=== PATIENT | female | born 1935 | race Caucasian/White ===

== ENCOUNTER 2024-11-21 14:26 | Emergency (ER) | payer MEDICARE, SELFPAY ==
[2024-11-21 14:30] VITALS: BP 145/90; PULSE 111; RESP 20; O2SAT 97; BMI 26.8
--- NOTE | 2024-11-21 14:39 | XR_ITS ---
WS: [id number] Exam: XR chest 1V portable [id number] Date/Time of Exam: 11/21/2024 2:47 PM Reason For Exam: shortness of breath No priors. Lungs are hyperinflated and clear. Heart size is normal. The mediastinum is normal in contour. Prominent hiatal hernia. No pleural effusion. Advanced DJD of both shoulders. XR/XR chest 1V portable [id number] IMPRESSION: 1. Pulmonary hyperinflation. No acute process. 2. Prominent hiatal hernia.
--- NOTE | 2024-11-21 14:41 | ECG_ITS ---
[facility] 2024-[facility]21 Pat Name: Yelitza Pisano Department: Room: Gender: Female Receiving Coordinator: : 1935 Requested By: Levar Delvalle Order Number: [id number] Kathrine MD: Yves Sweeney M.D. Measurements Intervals [place] Rate: 106 P: 72 SC: 175 QRS: -18 QRSD: 82 T: 78 QT: 326 QTc: 435 Interpretive Statements SINUS TACHYCARDIA ABNORMAL RHYTHM ECG No previous ECG available for comparison Electronically Signed On 11-21-2024 16:36:14 CDT by Yves Sweeney M.D. [email or web address]
--- NOTE | 2024-11-21 14:48 | W.ED.DENTAL ---
HPI - Dental/Oral General: Chief complaint: Shortness of Breath/Dyspnea Stated complaint: SOB - COPD Time Seen by Provider: 11/21/24 14:38 History of Present Illness: 81-year-old female presents emergency room complaining of shortness of breath she has a history of COPD. Patient has been on hospice for COPD the last several years. She has not been taking any of your budesonide evidently hospice would not pay for it so she was taken off of that she has noticed significant worsening of her symptoms since then. She comes in today because she has been more short of breath she uses oxygen but she says only at night she is about 4 L. She notices significant improvement after receiving DuoNeb and route to the hospital from EMS she was also given Solu-Medrol. Her oxygen saturations on room air when I came in the room were in the 92-93 range improving to 95-96 with 2 L by nasal cannula. She denies any fever sweats chills productive cough or hemoptysis. No known history of coronary artery disease no history of DVT or PE. She has not previously been diagnosed with any cancers. Associated symptoms: Denies fever(s) Related Data Home Medications ?Medication ?Instructions ?Recorded ?Confirmed allopurinol 100 mg tablet 100 mg PO DAILY 11/21/24 11/21/24 alprazolam 0.5 mg tablet 0.5 mg PO Q8H PRN ANXIETY 11/21/24 11/21/24 budesonide 1 mg/2 mL suspension 1 mg inhalation TID 11/21/24 11/21/24 for nebulization formoterol fumarate 20 mcg/2 mL 20 mcg inhalation BID 11/21/24 11/21/24 solution for nebulization furosemide 20 mg tablet 20 mg PO DAILY 11/21/24 11/21/24 levothyroxine 50 mcg tablet 50 mcg PO QAM 11/21/24 11/21/24 potassium chloride 20 mEq 20 meq PO DAILY 11/21/24 11/21/24 tablet,extended release revefenacin 175 mcg/3 mL solution 175 mcg inhalation DAILY 11/21/24 11/21/24 for nebulization (Yupelucreciai) Previous Rx's ?Medication ?Instructions ?Recorded ipratropium 0.5 mg-albuterol 3 mg 3 ml inhalation Q4H PRN shortness 11/21/24 (2.5 mg base)/3 mL nebulization of breath or wheezing #90 mL soln prednisone 20 mg tablet 20 mg PO TID #15 tabs 11/21/24 Allergies Allergy/AdvReac Type Severity Reaction Status Date / Time acetaminophen (From [place]) Allergy Unknown Verified 11/21/24 14:53 atorvastatin (From Lipitor) Allergy Unknown Verified 11/21/24 14:53 cefaclor (From Ceclor) Allergy ALGY-Anaphy Verified 11/21/24 14:53 laxis cefprozil Allergy Unknown Verified 11/21/24 14:53 cefuroxime (From Ceftin) Allergy Unknown Verified 11/21/24 14:53 hydrochlorothiazide (From Allergy Unknown Verified 11/21/24 14:53 Maxzide) hydrocodone (From [place]) Allergy Unknown Verified 11/21/24 14:53 levofloxacin (From Levaquin) Allergy Unknown Verified 11/21/24 14:53 lisinopril (From Prinivil) Allergy Unknown Verified 11/21/24 14:53 montelukast (From Singulair) Allergy Unknown Verified 11/21/24 14:53 niacin (From Niaspan Allergy Unknown Verified 11/21/24 14:53 Extended-Release) nifedipine (From Procardia) Allergy Unknown Verified 11/21/24 14:53 Penicillins Allergy Unknown Verified 11/21/24 14:53 theophylline Allergy Unknown Verified 11/21/24 14:53 tramadol Allergy Unknown Verified 11/21/24 14:53 triamterene (From Maxzide) Allergy Unknown Verified 11/21/24 14:53 Review of Systems Const: Denies: fever(s) or chills Card: Denies: chest pain Resp: Reports: dyspnea, wheezing and chest congestion GI: Denies: abdominal pain : Denies: dysuria, urinary frequency or urinary urgency Musc: Denies: neck pain or back pain Skin/Breast: Denies: rash PFSH ED PFSH: Medical History (Updated 11/21/24 @ 15:48 by Levar Singleton DO) COPD (chronic obstructive pulmonary disease) Physical Exam Const: GENERAL APPEARANCE: cooperative ORIENTATION/CONSCIOUSNESS: Yes awake, Yes oriented to person, Yes oriented to place and Yes oriented to time HENMT: COMMON NORMALS: normocephalic, atraumatic and hearing grossly normal bilaterally HEAD & SCALP: normocephalic and atraumatic Resp: AUSCULTATION: wheezes Cardio: COMMON NORMALS: regular rate, regular rhythm and No murmurs present (Cardio) RATE: regular rate RHYTHM: regular rhythm GI: COMMON NORMALS: Soft to palpation and No hepatosplenomegaly present AUSCULTATION: Yes normoactive bowel sounds PALPATION: Yes Soft to palpation, No Tenderness to palpation present (GI), No Guarding due to palpation present (GI) and Yes No hepatosplenomegaly present Extremity: COMMON NORMALS: normal to inspection, capillary refill normal, no clubbing, cyanosis or edema, no calf tenderness and no pedal edema Neuro: SENSORIUM/ORIENTATION: Yes oriented to person, Yes oriented to place and Yes oriented to time Skin: COMMON NORMALS: no rashes or lesions noted GENERAL SKIN EXAM: no rashes or lesions noted Course Vital Signs: Vital signs: Vital Signs Pulse Rate 105 H 11/21/24 17:49 Respiratory Rate 20 H 11/21/24 15:05 Blood Pressure 123/71 11/21/24 17:49 Pulse Oximetry 95 11/21/24 17:49 Oxygen Delivery Me thod Nasal Cannula 11/21/24 15:47 Oxygen Flow Rate 2 11/21/24 15:47 MDM - Dental/Oral Medical Decision Making Patient has been on hospice evidently for COPD for a number of years does not use oxygen or they have he uses it at night hospice was not going to pay for some of her medications particular inhaled budesonide and she did not want to pay [id number] so she stopped using it her symptoms seem to worsen. Patient did improve after DuoNeb and Solu-Medrol here. She tells me she has been taken off of hospice because she been on her for 3 years continuously now she is on palliative care instead. Encourage patient to follow-up with her primary care doctor for evaluation of long-term management of her COPD. Recommend continuous use of oxygen at 2 L/min. Patient given a steroid taper and also given DuoNeb suspect patient may be better off being treated outside of palliative care or hospice and being treated more aggressively especially given her report of improvement while on budesonide. Family expressed concern about her ability to get around evidently this has been an issue for several months. Discussed evaluation for possible senior care care through primary care doctor patient does not express much interest in this possibility Lab Data 11/21/24 14:47 11/21/24 14:47 Radiology Impressions Chest X-Ray 11/21/24 14:39 IMPRESSION: 1. Pulmonary hyperinflation. No acute process. 2. Prominent hiatal hernia. Laboratory Results WBC 7.85 10^3/uL (3.29-11.43) 11/21/24 14:47 RBC 4.66 10^6/uL (3.85-5.65) 11/21/24 14:47 Hgb 14.50 g/dL (11.27-16.99) 11/21/24 14:47 Hct 45.1 % (36-47) 11/21/24 14:47 MCV 96.8 fl (85-98) 11/21/24 14:47 MCH 31.1 pg (27-33) 11/21/24 14:47 MCHC 32.2 g/dL (30-55) 11/21/24 14:47 RDW 13.6 % (12.1-15.1) 11/21/24 14:47 Plt Count 195 10^3/cmm (157-399) 11/21/24 14:47 MPV 10.0 fL (7.4-10.4) 11/21/24 14:47 Neut % (Auto) 51.1 % 11/21/24 14:47 Lymph % (Auto) 37.1 % 11/21/24 14:47 [place] % (Auto) 8.0 % 11/21/24 14:47 Eos % (Auto) 3.1 % 11/21/24 14:47 Baso % (Auto) 0.4 % 11/21/24 14:47 Neut # (Auto) 4.02 10^3/uL (1.8-7.7) 11/21/24 14:47 Lymph # (Auto) 2.9 10^3/uL (0.8-4.8) 11/21/24 14:47 [place] # (Auto) 0.6 10^3/uL (0.2-0.9) 11/21/24 14:47 Eos # (Auto) 0.2 10^3/uL (0.0-0.8) 11/21/24 14:47 Baso # (Auto) 0.0 10^3/uL (0.0-0.1) 11/21/24 14:47 Nucleated RBC % (auto) 0 % 11/21/24 14:47 Nucleated RBCs # 0.0 /100WBC 11/21/24 14:47 Specimen Type Arterial 11/21/24 15:16 Sample Site Brachial, right 11/21/24 15:16 ABG pH 7.40 (7.35-7.45) 11/21/24 15:16 ABG pCO2 43.4 mmHg (35-45) 11/21/24 15:16 ABG pO2 95.9 mmHg (80.0-100.0) 11/21/24 15:16 ABG PO2/FiO2 Ratio 342 11/21/24 15:16 ABG HCO3 27.0 mmol/L (22-26) H 11/21/24 15:16 ABG Base Excess 1.8 mmol/L (-2.0-2.0) 11/21/24 15:16 Alcides Test N/a 11/21/24 15:16 Hematocrit 45.5 % (37-47) 11/21/24 15:16 Hgb O2 Saturation 97.2 % (95-100) 11/21/24 15:16 Carboxyhemoglobin 0.9 %THgb (0.4-20.1) 11/21/24 15:16 Methemoglobin 0.2 % (0.4-1.5) L 11/21/24 15:16 Total Hemoglobin 14.8 g/dL (12-16) 11/21/24 15:16 O2 Delivery Device Nc 11/21/24 15:16 O2 Liters/Min 2.0 % 11/21/24 15:16 FiO2 28.0 % 11/21/24 15:16 Tool Room Supervisor ID glc 11/21/24 15:16 Sodium 139 mmol/L (136-145) 11/21/24 14:47 Potassium 4.3 mmol/L (3.5-5.1) 11/21/24 14:47 Chloride 102 mmol/L (98-107) 11/21/24 14:47 Carbon Dioxide 24 mmol/L (22-29) 11/21/24 14:47 Anion Gap 17.3 (5-19) 11/21/24 14:47 BUN 24 mg/dL (8-23) H 11/21/24 14:47 Creatinine 1.0 mg/dL (0.5-0.9) H 11/21/24 14:47 GFR Calculation Not Reportable 11/21/24 14:47 Glucose 127 mg/dL (65-115) H 11/21/24 14:47 Calculated Osmolality 294 mOsm/kg (285-295) 11/21/24 14:47 Calcium 10.1 mg/dL (8.5-10.5) 11/21/24 14:47 Total Bilirubin 0.6 mg/dL (0.15-1.2) 11/21/24 14:47 AST 22 U/L (0-32) 11/21/24 14:47 ALT 16 U/L (0-33) 11/21/24 14:47 Alkaline Phosphatase 67 U/L (35-105) 11/21/24 14:47 Total Protein 7.5 g/dL (6.6-8.7) 11/21/24 14:47 Albumin 4.1 g/dL (3.5-5.2) 11/21/24 14:47 Globulin 3.4 g/dL (1.3-4.6) 11/21/24 14:47 Influenza A (PCR) Negative (Negative) 11/21/24 15:45 Influenza Type B (PCR) Negative (Negative) 11/21/24 15:45 RSV (PCR) Negative (Negative) 11/21/24 15:45 SARS-CoV-2 (PCR) Negative (Negative) 11/21/24 15:45 All radiology interpretation(s) finalized by discharge Discharge Plan Discharge Patient Disposition: Home Clinical Impression: Acute exacerbation of chronic obstructive airways disease Condition: Stable Prescriptions: New prednisone 20 mg tablet 20 mg PO TID Qty: 15 0RF Rx Instructions: 1 p.o. 3 times daily x3 days, 1 p.o. twice daily x2 days, 1 p.o. daily x2 days ipratropium-albuterol 0.5 mg-3 mg(2.5 mg base)/3 mL solution for nebulization 3 ml inhalation Q4H PRN (Reason: shortness of breath or wheezing) Qty: 90 0RF No Action alprazolam 0.5 mg tablet 0.5 mg PO Q8H PRN (Reason: ANXIETY ) levothyroxine 50 mcg tablet 50 mcg PO QAM formoterol fumarate 20 mcg/2 mL solution for nebulization 20 mcg INHALATION BID [place] 175 mcg/3 mL solution for nebulization 175 mcg INHALATION DAILY allopurinol 100 mg Tablet 100 mg PO DAILY furosemide 20 mg Tablet 20 mg PO DAILY budesonide 1 mg/2 mL suspension for nebulization 1 mg inhalation TID potassium chloride 20 mEq Tablet Extended Release 20 meq PO DAILY Discharge Orders: Discharge ED (Routine); Ordered 11/21/24 Ordered By: Levar Singleton Referrals: Lydia Cleaning, DO [Primary Care Provider] - Discharge Diet: Usual diet Discharge Activity: Increase activity as tolerated Patient Instructions: Opioid Safety, Pain Management Activity Restrictions/Additional Instructions: Thank you for choosing [facility] for your healthcare needs today. It is very important that you follow up as instructed or that you return to the Emergency Department should you have concerns or if your condition changes or worsens in any way. You are seen in the emergency room with complaint difficulty breathing chest x-ray was normal there lungs sound improved after receiving breathing treatments. Recommend you follow-up with your primary care doctor about your long-term management of your COPD. Refilled ipratropium bromide and give a short course of oral steroids to begin this evening. Print Language: Sinhala Coding Level of Care Code ED Raw Scales Operator for Theodora Rivero
[2024-11-21 14:59] LABS: Basophils % 0.4 %; Eosinophils # 0.2 10^3/uL (0.0-0.8); Eosinophils % 3.1 %; Hematocrit 45.1 % (36-47); Lymphocytes # 2.9 10^3/uL (0.8-4.8); Lymphocytes % 37.1 %; Mean Corpuscular HGB Conc 32.2 g/dL (30-55); Mean Corpuscular Hemoglobin 31.1 pg (27-33); Mean Corpuscular Volume 96.8 fl (85-98); Monocytes # 0.6 10^3/uL (0.2-0.9); Neutrophils # 4.02 10^3/uL (1.8-7.7); Neutrophils % 51.1 %; Nucleated Red Blood Cells % 0 %; Platelet Count 195 10^3/cmm (157-399); Red Blood Count 4.66 10^6/uL (3.85-5.65); Red Cell Distribution Width 13.6 % (12.1-15.1); White Blood Count 7.85 10^3/uL (3.29-11.43)
[2024-11-21 15:05] VITALS: PULSE 101; RESP 20; O2SAT 97
[2024-11-21] MEDS: ipratropium-albuterol 3 mL Neb INHALATION (15:05)
[2024-11-21 15:11] LABS: Alanine Aminotransferase 16 U/L (0-33); Albumin Level 4.1 g/dL (3.5-5.2); Alkaline Phosphatase 67 U/L (35-105); Anion Gap 17.3 (5-19); Aspartate Amino Transferase 22 U/L (0-32); Blood Urea Nitrogen 24 mg/dL (8-23); Calcium 10.1 mg/dL (8.5-10.5); Carbon Dioxide 24 mmol/L (22-29); Chloride 102 mmol/L (98-107); Creatinine Clr Calc Pharmacy 33.4226; Globulin 3.4 g/dL (1.3-4.6); Glucose 127 mg/dL (65-115); Osmolality Calculated 294 mOsm/kg (285-295); Potassium 4.3 mmol/L (3.5-5.1); Sodium 139 mmol/L (136-145); Total Bilirubin 0.6 mg/dL (0.15-1.2); Total Protein 7.5 g/dL (6.6-8.7)
[2024-11-21 15:27] LABS: ABG PCO2 43.4 mmHg (35-45); Arterial Blood Gas Hematocrit 45.5 % (37-47); Base Excess ABG 1.8 mmol/L (-2.0-2.0); Blood Gas Operator Identificat glc; Blood Gas Sample Site Brachial, right; Blood Gas Sample Type Arterial; Carboxyhemoglobin 0.9 %THgb (0.4-20.1); HGB O2 Sat 97.2 % (95-100); Methemoglobin 0.2 % (0.4-1.5); Oxygen Device NC; PO2 ABG 95.9 mmHg (80.0-100.0); PO2 FiO2 Ratio Arterial Blood 342; Total Hemoglobin 14.8 g/dL (12-16)
[2024-11-21 15:47] VITALS: BP 109/57; PULSE 104; O2SAT 96
[2024-11-21 16:33] LABS: Influenza A NEGATIVE (Negative); Influenza B NEGATIVE (Negative); Respiratory Syncytial Virus Ce NEGATIVE (Negative); SARS-CoV-2 PCR NEGATIVE (Negative)
[2024-11-21 17:49] VITALS: BP 123/71; PULSE 105; O2SAT 95
== END 2024-11-21 17:52 | disposition home or self-care (01) ==
PROVIDERS: Emergency Provider Family Medicine; PCP Family Medicine
DX: J44.1 Chronic obstructive pulmonary disease with (acute) exacerbation (principal); Z11.52 Encounter for screening for COVID-19
CPT/HCPCS: 36415; 36600; 71045; 80053; 82805; 85025; 87637; 93005; 94640; 99285; J9999

== ENCOUNTER 2025-07-01 08:12 | Emergency (ER) | payer MEDICARE, SELFPAY ==
[2025-07-01 08:12] VITALS: BP 146/92; PULSE 78; RESP 16; TEMP 36.5; O2SAT 94; BMI 25.4
--- NOTE | 2025-07-01 08:15 | XRR_ITS ---
PROCEDURE INFORMATION: Exam: XR Chest Exam date and time: 07/01/2025 8:28 AM Age: 89 years old Clinical indication: Shortness of breath; Additional info: SOB TECHNIQUE: Imaging protocol: Radiologic exam of the chest. Views: 1 view. COMPARISON: CR XR chest 1V portable [id number] 11/21/2024 3:07 PM FINDINGS: Lungs: Calcified granulomas in the right mid lung. No focal consolidation. Pleural spaces: Unremarkable. No pleural effusion. No pneumothorax. Heart/Mediastinum: Stable hiatal hernia. Vasculature: Atherosclerotic aortic calcifications. Bones/joints: Similar degenerative changes of bilateral shoulders. No acute osseous findings. XR/XR chest 1V portable [id number] IMPRESSION: 1. No acute cardiopulmonary findings. 2. Stable hiatal hernia.
--- NOTE | 2025-07-01 08:24 | W.ED.GENADLT ---
HPI - General Adult General: Chief complaint: General Medical Stated complaint: arm pain Time Seen by Provider: 07/01/25 08:13 Source: patient Mode of arrival: ambulatory Limitations: no limitations History of Present Illness: 89-year-old female states that over the last 5 days she has been having cough congestion with chills and subjective fevers at home. States that overnight she had had some weakness in her arms and just feeling generally weak as well. She denies any chest pain denies any headache denies any vomiting or diarrhea Related Data Home Medications ?Medication ?Instructions ?Recorded ?Confirmed allopurinol 100 mg tablet 100 mg PO DAILY 11/21/24 07/01/25 alprazolam 0.5 mg tablet 0.5 mg PO Q8H PRN ANXIETY 11/21/24 07/01/25 budesonide 1 mg/2 mL suspension 1 mg inhalation TID 11/21/24 07/01/25 for nebulization formoterol fumarate 20 mcg/2 mL 20 mcg inhalation BID 11/21/24 07/01/25 solution for nebulization furosemide 20 mg tablet 20 mg PO DAILY 11/21/24 07/01/25 levothyroxine 50 mcg tablet 50 mcg PO QAM 11/21/24 07/01/25 potassium chloride 20 mEq 20 meq PO DAILY 11/21/24 07/01/25 tablet,extended release metoprolol tartrate 100 mg tablet 100 mg PO BID 07/01/25 07/01/25 Previous Rx's ?Medication ?Instructions ?Recorded ipratropium 0.5 mg-albuterol 3 mg 3 ml inhalation Q4H PRN shortness 11/21/24 (2.5 mg base)/3 mL nebulization of breath or wheezing #90 mL soln prednisone 20 mg tablet 20 mg PO TID #15 tabs 11/21/24 Allergies Allergy/AdvReac Type Severity Reaction Status Date / Time acetaminophen (From [place]) Allergy Unknown Verified 11/21/24 14:53 atorvastatin (From Lipitor) Allergy Unknown Verified 11/21/24 14:53 cefaclor (From Ceclor) Allergy ALGY-Anaphy Verified 11/21/24 14:53 laxis cefprozil Allergy Unknown Verified 11/21/24 14:53 cefuroxime (From Ceftin) Allergy Unknown Verified 11/21/24 14:53 hydrochlorothiazide (From Allergy Unknown Verified 11/21/24 14:53 Maxzide) hydrocodone (From [place]) Allergy Unknown Verified 11/21/24 14:53 levofloxacin (From Levaquin) Allergy Unknown Verified 11/21/24 14:53 lisinopril (From Prinivil) Allergy Unknown Verified 11/21/24 14:53 montelukast (From Singulair) Allergy Unknown Verified 11/21/24 14:53 niacin (From Niaspan Allergy Unknown Verified 11/21/24 14:53 Extended-Release) nifedipine (From Procardia) Allergy Unknown Verified 11/21/24 14:53 Penicillins Allergy Unknown Verified 11/21/24 14:53 theophylline Allergy Unknown Verified 11/21/24 14:53 tramadol Allergy Unknown Verified 11/21/24 14:53 triamterene (From Maxzide) Allergy Unknown Verified 11/21/24 14:53 PFSH ED PFSH: Medical History (Updated 07/01/25 @ 09:18 by Shiva Toney MD) COPD (chronic obstructive pulmonary disease) Physical Exam Const: COMMON NORMALS: patient oriented x3 HENMT: COMMON NORMALS: normocephalic and atraumatic HEAD & SCALP: normocephalic and atraumatic Eye: COMMON NORMALS: Equal, round and reactive pupils present and EOMs intact bilaterally PUPIL: Yes Equal, round and reactive pupils present Neck/C-Spine: COMMON NORMALS: full ROM and supple Chest: COMMONS NORMALS: normal inspection of the chest and normal palpation of entire chest wall Resp: COMMON NORMALS: normal respiratory effort, No retractions, No use of accessory muscles and clear to auscultation bilaterally AUSCULTATION: clear to auscultation bilaterally Cardio: COMMON NORMALS: regular rate, regular rhythm and No murmurs present (Cardio) RATE: regular rate RHYTHM: regular rhythm GI: COMMON NORMALS: Normal to inspection, nondistended, normoactive bowel sounds present, Soft to palpation, non-tender and no masses PALPATION: Yes Soft to palpation Extremity: COMMON NORMALS: normal to inspection and full ROM Neuro: COMMON NORMALS: patient oriented x3, moves all extremities and no focal motor deficits Psych: COMMON NORMALS: mental status grossly normal, Normal thought process present and cooperative THOUGHT PROCESS: Normal thought process present Skin: COMMON NORMALS: no rashes or lesions noted and no wounds GENERAL SKIN EXAM: no rashes or lesions noted Course Vital Signs: Vital signs: Vital Signs Temperature 97.7 F 07/01/25 08:12 Pulse Rate 77 07/01/25 09:36 Respiratory Rate 18 07/01/25 09:36 Blood Pressure 137/88 07/01/25 09:36 Pulse Oximetry 93 07/01/25 09:36 Oxygen Delivery Me thod Room Air 07/01/25 08:12 MDM - General Adult Medical Decision Making 89-year-old female has had cough congestion for the last few days. Differential includes pneumonia, upper respiratory infection. Chest x-ray here showed no acute abnormalities. She has had no pain EKG here showed normal sinus rhythm heart rate [address] elevation QRS 74 QTc 381. This is likely a viral upper respiratory infection labs showed no significant abnormalities she has been in no distress here she stable for discharge follow-up PCP return if worsening Medical Records I reviewed the patient's medical records. Lab Data I reviewed the patient's lab results. 07/01/25 08:20 07/01/25 08:20 Radiology Impressions Chest X-Ray 07/01/25 08:15 IMPRESSION: 1. No acute cardiopulmonary findings. 2. Stable hiatal hernia. Laboratory Results WBC 5.98 10^3/uL (3.29-11.43) 07/01/25 08:20 RBC 4.61 10^6/uL (3.85-5.65) 07/01/25 08:20 Hgb 14.30 g/dL (11.27-16.99) 07/01/25 08:20 Hct 43.9 % (36-47) 07/01/25 08:20 MCV 95.2 fl (85-98) 07/01/25 08:20 MCH 31.0 pg (27-33) 07/01/25 08:20 MCHC 32.6 g/dL (30-55) 07/01/25 08:20 RDW 14.1 % (12.1-15.1) 07/01/25 08:20 Plt Count 184 10^3/cmm (157-399) 07/01/25 08:20 MPV 9.8 fL (7.4-10.4) 07/01/25 08:20 Neut % (Auto) 69.0 % 07/01/25 08:20 Lymph % (Auto) 16.7 % 07/01/25 08:20 [place] % (Auto) 10.4 % 07/01/25 08:20 Eos % (Auto) 3.2 % 07/01/25 08:20 Baso % (Auto) 0.5 % 07/01/25 08:20 Neut # (Auto) 4.13 10^3/uL (1.8-7.7) 07/01/25 08:20 Lymph # (Auto) 1.0 10^3/uL (0.8-4.8) 07/01/25 08:20 [place] # (Auto) 0.6 10^3/uL (0.2-0.9) 07/01/25 08:20 Eos # (Auto) 0.2 10^3/uL (0.0-0.8) 07/01/25 08:20 Baso # (Auto) 0.0 10^3/uL (0.0-0.1) 07/01/25 08:20 Nucleated RBC % (auto) 0 % 07/01/25 08:20 Nucleated RBCs # 0.0 /100WBC 07/01/25 08:20 Sodium 139 mmol/L (136-145) 07/01/25 08:20 Potassium 3.7 mmol/L (3.5-5.1) 07/01/25 08:20 Chloride 104 mmol/L (98-107) 07/01/25 08:20 Carbon Dioxide 23 mmol/L (22-29) 07/01/25 08:20 Anion Gap 15.7 (5-19) 07/01/25 08:20 BUN 9 mg/dL (8-23) 07/01/25 08:20 Creatinine 0.7 mg/dL (0.5-0.9) 07/01/25 08:20 GFR Calculation Not Reportable 07/01/25 08:20 Glucose 120 mg/dL (65-115) H 07/01/25 08:20 Calculated Osmolality 288 mOsm/kg (285-295) 07/01/25 08:20 Calcium 10.0 mg/dL (8.5-10.5) 07/01/25 08:20 Total Bilirubin 0.7 mg/dL (0.15-1.2) 07/01/25 08:20 AST 24 U/L (0-32) 07/01/25 08:20 ALT 16 U/L (0-33) 07/01/25 08:20 Alkaline Phosphatase 65 U/L (35-105) 07/01/25 08:20 Total Protein 6.9 g/dL (6.6-8.7) 07/01/25 08:20 Albumin 3.9 g/dL (3.5-5.2) 07/01/25 08:20 Globulin 3.0 g/dL (1.3-4.6) 07/01/25 08:20 Urine Color Yellow (Yellow) 07/01/25 08:20 Urine Appearance Turbid (CLEAR) A 07/01/25 08:20 Urine pH 6.0 (5-7) 07/01/25 08:20 Ur Specific [place] 1.009 (1.005-1.030) 07/01/25 08:20 Urine Protein Negative (Negative) 07/01/25 08:20 Urine Glucose (UA) Negative (Normal) 07/01/25 08:20 Urine Ketones Negative (Negative) 07/01/25 08:20 Urine Blood Negative (Negative) 07/01/25 08:20 Urine Nitrate Negative (Negative) 07/01/25 08:20 Urine Bilirubin Negative (Negative) 07/01/25 08:20 Urine Urobilinogen 0.2 mg/dL (Negative) 07/01/25 08:20 Ur Leukocyte Esterase 1+ (Negative) A 07/01/25 08:20 Urine RBC 0-2 /hpf (0-2) 07/01/25 08:20 Urine WBC 6-10 /hpf (0-5) 07/01/25 08:20 Ur Squamous Epith Cells 21-50 /hpf (0-5) H 07/01/25 08:20 Amorphous Sediment Not Reportable 07/01/25 08:20 Urine Bacteria None seen /hpf (NONE) 07/01/25 08:20 Hyaline Casts 8.26 /lpf 07/01/25 08:20 Fine Granular Casts 0-4 /lpf H 07/01/25 08:20 Influenza A (PCR) Negative (Negative) 07/01/25 08:20 Influenza Type B (PCR) Negative (Negative) 07/01/25 08:20 RSV (PCR) Negative (Negative) 07/01/25 08:20 SARS-CoV-2 (PCR) Negative (Negative) 07/01/25 08:20 All radiology interpretation(s) finalized by discharge EKG Data EKG 1: I personally reviewed and interpreted this EKG as follows: EKG interpretation date: 07/01/25 EKG interpretation time: 08:38 Interpretation: nsr hr [address] elevation qrs 74 qtc 381 Computer generated interpretation: Chest X-Ray 07/01/25 08:15 IMPRESSION: 1. No acute cardiopulmonary findings. 2. Stable hiatal hernia. Discharge Plan Discharge Patient Disposition: Home Clinical Impression: Upper respiratory infection Condition: Stable Prescriptions: No Action alprazolam 0.5 mg tablet 0.5 mg PO Q8H PRN (Reason: ANXIETY ) levothyroxine 50 mcg tablet 50 mcg PO QAM formoterol fumarate 20 mcg/2 mL solution for nebulization 20 mcg INHALATION BID allopurinol 100 mg Tablet 100 mg PO DAILY furosemide 20 mg Tablet 20 mg PO DAILY budesonide 1 mg/2 mL suspension for nebulization 1 mg inhalation TID potassium chloride 20 mEq Tablet Extended Release 20 meq PO DAILY prednisone 20 mg tablet 20 mg PO TID Qty: 15 0RF Rx Instructions: 1 p.o. 3 times daily x3 days, 1 p.o. twice daily x2 days, 1 p.o. daily x2 days ipratropium-albuterol 0.5 mg-3 mg(2.5 mg base)/3 mL solution for nebulization 3 ml inhalation Q4H PRN (Reason: shortness of breath or wheezing) Qty: 90 0RF metoprolol tartrate 100 mg tablet 100 mg PO BID Discharge Orders: Discharge ED (Routine); Ordered 07/01/25 Ordered By: Shiva Toney Referrals: Lydia Cleaning DO [Primary Care Provider, Family Practice] - 4-7 days Discharge Diet: Advance as tolerated Discharge Activity: Resume usual activity Patient Instructions: Upper Respiratory Infection (ED) Print Language: Polish Coding Level of Care Code ED [place] Machine Operator Helper for Theodora Rivero
--- OUTSIDE RECORDS SUMMARY | 2025-07-01 08:27 | XMS_ITS | Encounter Summary ---
Author Organization [facility] Address [address] [place] [address] Care Team Providers Care Machine Farmworker Name Role Phone Lydia Cleaning DO Primary Care Provider Encounter Details Date Type Department Care Team (Latest Contact Info) Description 05/14/2004 Outpatient Historical [facility] Medicine- [place] [address] [place] [address] [place] [address] Waqar Hough MD [address] [place] [id number] Vaccine for influenza (Primary Dx) Social History Tobacco Use Types Packs/Day Years Used Date Smoking Tobacco: Never Assessed Comments Unknown Sex and Gender Information Value Date Recorded Sex Assigned at Not on file Legal Sex Female 3:49 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
--- OUTSIDE RECORDS SUMMARY | 2025-07-01 08:27 | XMS_ITS | Encounter Summary ---
Author Organization [facility] Address [address] [place] [address] Care Team Providers Care Make Up Operator Name Role Phone Lydia Cleaning DO Primary Care Provider [phone] Encounter Details Date Type Department Care Team (Late st Contact Info) Description 11/26/2021 Telephone [facility] [id number] [place] [address] Edgar White Jr., DO NO ADDRESS ON FILE Social History Tobacco Use Types Packs/Day Years Used Date Smoking Tobacco: Never Smokeless Tobacco: Never Alcohol Use Standard Drinks/Week Comments No 0 (1 standard drink = 0.6 oz pur e alcohol) Comments No Sex and Gender Information Value Date Recorded Sex Assigned at Not on file Legal Sex Female 3:07 AM SCIENTIFIC INVESTIGATOR Gender Identity Not on file Sexual Orientation Not on file COVID-19 Exposure Response Date Recorded In the last 10 days, have yo u been in contact with someone who was confirmed or suspected to have Coronavirus/COVID-19? No / Unsure 11/27/2021 8:17 AM CDT documented as of this encounter Plan of Treatment Not on file documented as of this encounter Visit Diagnoses Not on filedocumented in this encounter Additional Health Concerns Infection Onset Date Last Indicated Resolved Time MRSA 10/08/2021 10/08/2021 10/07/2022 1:16 AM SCIENTIFIC INVESTIGATOR documented as of this encounter Care Teams Make Up Operator Relationship Specialty Start Date End Date Lydia Cleaning DO [address] [facility] [place] [address] PCP - General Family Practice 04/23/10 documented as of this encounter
--- OUTSIDE RECORDS SUMMARY | 2025-07-01 08:27 | XMS_ITS | Encounter Summary ---
Author Organization [facility] Address [address] [place] [address] Care Team Providers Care License And Permit Specialist Name Role Phone Lydia Cleaning DO Primary Care Provider Encounter Details Date Type Department Care Team (Latest Contact Info) Description 06/23/2005 Outpatient Historical [facility] [place] [address] [place] [address] Waqar Hough MD [address] [place] [phone] ABN BLOOD CHEMISTRY NEC (Primary Dx) Social History Tobacco Use Types Packs/Day Years Used Date Smoking Tobacco: Never Assessed Comments Unknown Sex and Gender Information Value Date Recorded Sex Assigned at Not on file Legal Sex Female 3:49 AM PATIENT REGISTRATION SPECIALIST Gender Identity Not on file Sexual Orientation Not on file documented as of this encounter Plan of Treatment Not on file documented as of this encounter Visit Diagnoses Diagnosis Other abnormal blood chemistry- Primary documented in this encounter Care Teams License And Permit Specialist Relationship Specialty Start Date End Date Lydia Cleaning DO [address] [place] [facility] [place] [address] PCP - General Family Practice 04/23/10 documented as of this encounter
--- OUTSIDE RECORDS SUMMARY | 2025-07-01 08:27 | XMS_ITS | Clinical Summary ---
Author Organization [facility] Address [address] [place] [address] Care Team Providers Care Production Line Solderer Name Role Phone Lydia Cleaning DO Primary Care Provider Allergies Active Allergy Reactions Criticality Noted Date Comments Atorvastatin Unknown 05/31/2008 Cefaclor Swelling High 05/31/2008 Cefprozil Unknown 05/31/2008 Cefuroxime Axetil Unknown 05/31/2008 Ciprofloxacin Unknown 08/15/2019 Gabapentin Nausea and Vomiting Low 03/25/2018 Hydrocodone-Acetaminophen Nausea and Vomiting Low 0 11/28/2013 Levofloxacin Rash Low 03/28/2009 Lisinopril Unknown 05/31/2008 Montelukast Rash Medium 05/31/2008 Niacin Unknown 09/11/2011 Nifedipine Unknown 05/31/2008 Penicillins Hives High 05/31/2008 Theophylline Nausea and Vomiting High 05/31/2008 Tramadol Nausea and Vomiting High 03/01/2013 Triamterene-Hydrochlorothiazid Hives High 05/31 Medications Cranberry 500 mg Oral Cap Take 1 Cap by mouth daily. Active ERGOCALCIFEROL, VITAMIN D2, (VITAMIN D ORAL)Indications:H ypercalcemia,Other abnormal clinical finding Take 800 mg by mouth daily. Active loratadine (CLARITIN) 10 mg Oral tablet Take 1 Tab by mouth daily. 90 Tab 3 12/12/19 11 Active calcium carbonate (TUMS) 400 mg (1,000 mg) Tablet, Chewable Take by mouth daily with breakfast. Active lancets (MICROLET LANCET)Indications :Controlled type 2 diabetes mellitus without complication, without long-term current use of insulin ([facility]) USE TO TEST BLOOD SUGAR DAILY.. 100 Each 4 07/15/20 18 Active blood sugar diagnostic (CONTOUR NEXT TEST STRIPS) StripIndications:C ontrolled type 2 diabetes mellitus without complication, without long-term current use of insulin ([facility]) Test daily. 100 Strip 3 07/15/20 18 Active power wheelchairIndicati ons:Primary osteoarthritis involving multiple joints,Difficulty walking,Unsteady gait,Weakness,PVD (peripheral vascular disease),Chronic midline low back pain without sciatica,Chronic pain of both knees Face to Face completed within 6 months: yes Length of Need: 99 months. 1 Each 10/31/19 19 Active diclofenac sodium (VOLTAREN) 1 % gel Apply 4 Grams to affected area 4 times daily. 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 3 Inhaler 3 01/21/20 19 Active albuterol HFA 90 mcg inhalerIndications :Asthma with chronic obstructive pulmonary disease (COPD) ([facility]) Take 2 Puffs by inhalation every 6 hours as needed for Shortness of Breath. 8.5 Gram 1 07/15/20 19 Active tiotropium (Spiriva with HandiHaler) 18 mcg capsule INHALE CONTENTS OF 1 CAPSULE ONCE DAILY USING HANDIHALER 30 Capsule 5 08/15/19 20 Active meclizine (ANTIVERT) 25 mg tablet TAKE 1 TABLET BY MOUTH THREE TIMES DAILY NEEDED FOR DIZZINESS 60 Tablet 2 12/16/19 20 Active meloxicam (MOBIC) 15 mg tabletIndications: Primary osteoarthritis involving multiple joints TAKE 1 TABLET(15 MG) BY MOUTH DAILY 90 Tablet 4 03/08/20 20 Active pravastatin (PRAVACHOL) 40 mg tabletIndications: Mixed hyperlipidemia Take 1 Tablet (40 mg) by mouth daily. 90 Tablet 4 03/08/20 20 Active metoprolol tartrate (LOPRESSOR) 100 mg tabletIndications: Essential hypertension Take 1 Tablet (100 mg) by mouth 2 times daily. 180 Tablet 3 03/08/20 20 Active compr.stocking,kne e,long,large (Comp Stocking,Knee,Long ,Large)Indications :Bilateral leg edema Compression stocking, knee high. Wear daily 2 Each 1 03/08/20 Active allopurinoL (ZYLOPRIM) 100 mg tabletIndications: Gout, unspecified cause, unspecified chronicity, unspecified site Take 1 Tablet (100 mg) by mouth daily. 90 Tablet 3 03/08/20 Active omeprazole (PriLOSEC) 20 mg Capsule, Delayed Release(E.C.) TAKE ONE CAPSULE BY MOUTH TWICE DAILY(TAKE 30 MINUTES BEFORE BREAKFAST AND SUPPER.) 180 Capsule 2 03/23/20 Active formoterol (Perforomist) 20 mcg/2 mL Solution for Nebulization Take 2 mL (20 mcg) by inhalation 2 times daily. 120 mL 05/01/20 Active Yupelri 175 mcg/3 mL Solution for Nebulization USE 1 VIAL IN NEBULIZER DAILY 90 mL 05/01/20 Active budesonide (PULMICORT RESPULE) 0.5 mg/2 mL Suspension for Nebulization USE 1 VIAL IN NEBULIZER TWICE DAILY - rinse mouth after treatment. 120 mL 05/01/20 Active oxygen home deliveryIndication s:Nocturnal hypoxia Home Oxygen Concentrator 2-3 L/M Sleep, Delivery Device: Nasal Cannula May provide device best for patient needs(E system,home fill, conserving device) Length of Need: 99 months 1 Each 05/18/20 Active diabetic shoes with insertsIndications :Controlled type 2 diabetes mellitus without complication, without long-term current use of insulin ([facility]),Type 2 diabetes mellitus with stage 3a chronic kidney disease, without long-term current use of insulin ([facility]) Length of Need: 99 months. Patient has diabetes mellitus and one of the following: peripheral neuropathy with evidence of callus or poor circulation Patient has diabetes mellitus. Patient is being treated under comprehensive plan for diabetes and the patient needs special shoes because of diabetes. Dispense 1/ year shoe and 3/year inserts. 1 Each 07/31/20 Active levothyroxine 50 mcg tabletIndications: Hypothyroidism due to acquired atrophy of thyroid TAKE 1 TABLET BY MOUTH EVERY MORNING 90 Tablet 4 08/20/19 Active hydrALAZINE (APRESOLINE) 10 mg tabletIndications: FLAKITA (generalized anxiety disorder) TAKE 1 TABLET(10 MG) BY MOUTH TWICE DAILY 180 Tablet 2 03/08/20 21 Active diltiaZEM (TIAZAC) 300 mg Extended Release capsule TAKE 1 CAPSULE BY MOUTH DAILY 90 Capsule 1 10/16/19 21 Active metFORMIN (GLUCOPHAGE) 500 mg tabletIndications: Type 2 diabetes mellitus with stage 3 chronic kidney disease, without long-term current use of insulin ([facility]) Take 1 Tablet (500 mg) by mouth daily. 90 Tablet 3 10/16/19 21 Active fluticasone propionate (FLONASE) 50 mcg/spray [place], Suspension nasal inhalerIndications :Seasonal allergic rhinitis due to pollen SHAKE LIQUID AND USE 2 SPRAYS IN EACH NOSTRIL DAILY 16 mL 10/16/19 21 Active diaper,brief,adult ,disposable (Briefs, Adult-Extra Large)Indications: Urgency of urination,Mixed stress and urge urinary incontinence Use daily as needed for incontinence. 90 Each 11 10/16/19 21 Active furosemide (LASIX) 20 mg tabletIndications: Essential hypertension,Lower leg edema Take 1/2 tab by mouth daily in the morning as needed for lower leg swelling. Take with potassium 45 Tablet 2 12/21/19 21 Active potassium chloride (KLOR-CON) 10 mEq Extended Release tabletIndications: Essential hypertension,Lower leg edema Take 1 tab daily on days you take lasix. 15 Tablet 1 12/21/19 21 Active quinapriL (ACCUPRIL) 20 mg tabletIndications: Essential hypertension TAKE 1 TABLET BY MOUTH EVERY DAY 90 Tablet 4 01/08/20 21 Active ALPRAZolam (XANAX) 0.5 mg tabletIndications: FLAKITA (generalized anxiety disorder) TAKE 1 TABLET BY MOUTH EVERY 8 HOURS NEEDED. 90 Tablet 1 01/08/20 21 Active albuterol (PROVENTIL,VENTOLI N) 2.5 mg /3 mL (0.083 %) Solution for NebulizationIndica tions:Asthma with chronic obstructive pulmonary disease (COPD) ([facility]) Take 3 mL (2.5 mg) by inhalation every 4 hours as needed for Shortness of Breath. 360 mL 1 01/23/20 21 Active predniSONE (DELTASONE) 10 mg tabletIndications: Asthma with chronic obstructive pulmonary disease (COPD) ([facility]) Take 2 tabs daily for 3 days then 1 tab daily for 3 days. 9 Tablet 01/23/20 21 Active Active Problems Problem Noted Date Diagnosed Date Type 2 DM with stage 3 chronic kidney disease GF R 30-59 12/30/2017 Type 2 DM with diabetic peripheral angiopathy w/ o gangrene 10/23/2017 Gastroesophageal reflux disease without esophagi tis 03/02/2017 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 hout current pathological fracture 03/02/2017 Idiopathic chronic gout of multiple sites withou t tophus 04/08/2016 Chronic midline low back pain with bilateral sci atica 05/02/2014 Primary insomnia 04/28/2014 Hypothyroidism due to acquired atrophy of thyroi d 03/16/2014 Macular degeneration 06/22/2009 PVD (peripheral vascular disease) 05/26/2009 Benign paroxysmal positional vertigo due to bilateral vestibular disorder 04/25/2009 FLAKITA (generalized anxiety disorder) 11/03/2008 Peripheral edema 07/07/2008 Asthma with chronic obstructive pulmonary diseas e (COPD) Essential hypertension Primary osteoarthritis involving multiple joints Seasonal allergic rhinitis due to pollen Mixed hyperlipidemia Overview (06/01/2008): Managed by Dr. Royal Hypercalcemia Overview (06/01/2008): Managed by Dr. Royal Controlled type 2 diabetes m nery without complication, without long-term current use of insulin Overview (06/01/2008): Managed by Dr. Royal Immunizations Immunization Administration Dates Next Due (ADACEL/BOOSTRIX)(10 YR UP) TDAP VACCINE, 0.5ML, IM 07/31/2009 (PNEUMOVAX 23)(50 YRS UP) PN EUMOCOCCAL POLYSACCHARIDE (PPV23) 0.5 ML, IM 08/03/1995 INFLUENZA VACCINE QUADRIVALE NT 3 YR UP PF IM 05/19/2019 Influenza Seasonal Unspecifi ed Formulation IM 05/23/2015,05/26/2008,05/07/2007,06/11,05/14/2005,05/14/2004 Influenza Vaccine High Dose 65+ Yrs IM 1 ,04/19/2018,04/08/2016,05/23,05/12/2014,05/12/2013,05/10/2012 Influenza Vaccine Split 3+ Yrs IM 07/22/2011,,05/25/2009 Influenza Vaccine Tri Adjuva nted 65+ PF IM 06/18/2017 PREVNAR (PCV13) pneumococcal 13-valent conjugate Vaccine 05/11/2020 Family History Medical History Relation Name Comments Coronary Artery Disease Father Dec' d age 63 High Cholesterol Father Hypertension Father Lung Cancer Father Alzheimer's Disease Mother Diabetes Mother Relation Name Status Comments Father Mother Social History Tobacco Use Types Packs/Day Years Used Date Smoking Tobacco: Never Smokeless Tobacco: Never Tobacco Cessation:Counseling Given: Yes Alcohol Use Standard Drinks/Week Comments No 0 (1 standard drink = 0.6 oz pur e alcohol) Comments No Sex and Gender Information Value Date Recorded Sex Assigned at Not on file Legal Sex Female 3:49 AM PRESS READER Gender Identity Not on file Sexual Orientation Not on file Occupation Industry Job Start Date Job End Date Not on file Not on file Not on file Not on file Last Filed Vital Signs Vital Sign Reading Time Taken Comments Blood Pressure 140/82 12/20/2020 9:31 AM CDT Pulse 84 12/20/2020 9:28 AM CDT Temperature 37.4 C (99.3 F) 12/20/2020 9:28 AM CDT Respiratory Rate 20 07/31/2020 8:30 AM PRESS READER Oxygen Saturation 94% 12/20/2020 9:28 AM CDT Inhaled Oxygen Concentration - - Weight 79.8 kg (176 lb) 12/20/2020 9:28 AM CDT Height 152.4 cm (5') 10/15/2020 9:32 AM CDT Body Mass Index 34.37 10/15/2020 9:32 AM CDT Plan of Treatment Health Maintenance Due Date Last Done Comments ZOSTER VACCINE (1 of 2) 1986 RSV VACCINE (60+ or ) (1 - 1-dose 75+ series) 2011 DIABETES MICROALBUMIN ANNUAL SCREEN 04/19/2019 04/19/2018, 03/02/2017 DTAP/TDAP/TD VACCINES (2 - T d or Tdap) 07/31/2019 07/31/2009 PNEUMOCOCCAL VACCINE 50+ YEA RS (3 of 3 - PCV20 or PCV21) 07/06/2020 05/11/2020, 08/03/1995 LDL CHOLESTEROL ANNUAL 03/08/2021 0, 05/24/2019, 04/19/2018, Additional history exists DIABETES HBA1C Q 6 MONTHS 06/22/20212020, 07/31/2020, 03/08/2020, Additional history exists DIABETES ANNUAL FOOT EXAM 07/31/20212019, 10/21/2018, 10/21/2018, Additional history exists Traditional Medicare (ACO) A nnual Wellness Visit 10/16/2021 10/15/2020, 12/04/2017, 07/11/2016, Additional history exists DIABETES ANNUAL RETINAL EXAM 09/11/202204/2022, 06/01/2018, 06/01/2018, Additional history exists OSTEOPOROSIS SCREENING 07/04/2024 9, 08/13/2016, 01/06/2007 INFLUENZA VACCINE (#1) 2025 0, 05/19/2019, 04/19/2018, Additional history exists Goals Goal Patient Goal Type Associated Problems Recent Progress Patient-Stated? Author Blood Pressure < 140/90 Blood Pressure 140/82(2020 9:31 AM CDT) No Bambi Pate FNP Exercise 3x per week (30 min per time) Exercise No Bambi Pate FNP HEMOGLOBIN A1C < 7.0 Result Component 5.6( 10:16 AM CDT) No Bambi Pate FNP Procedures Procedure Name Priority Date/Time Associated Diagnosis Comments HEMOGLOBIN A1C Routine 12/20/2020 10:16 AM CDT Type 2 diabetes mellitus with stage 3a chronic kidney disease, without long-term current use of insulin ([facility]) DIABETES FOOT EXAM Routine 07/31/2020 LIPID PANEL Routine 03/08/2020 9:31 AM CDT Mixed hyperlipidemia XR DEXA BONE DENSITY AXIAL 1 OR MORE SITES Routine 07/04/2019 2:34 PM PRESS READER Post-menopausal MICROALBUMIN/CREATI NINE RATIO, RANDOM UR Routine 04/19/2018 10:22 AM CDT Controlled type 2 diabetes mellitus without complication, without long-term current use of insulin ([facility]) DIABETES EYE EXAM Routine 05/29/2017 from Last 3 Months or Most Recently Relevant to Health Maintenance Results * HEMOGLOBIN A1C (12/20/2020 10:16 AM CDT) HEMOGLOBIN A1C 5.6 See Comment % 12/20/2020 8:[address] [facility]ST[facility] EST. AVG GLUCOSE, A1C 114 mg/dL 12/20/2020 8:[address] [facility] Blood Venipuncture / Unknown 12/20/2020 10:16 AM CDT 12/20/2020 8:[address] [facility] - 12/20/2020 8:31 PM CDT HGB A1C INTERPRETATION NORMAL: <5.7% PRE-DIABETES: 5.7 - 6.4% DIABETES: 6.5% OR GREATER Falsely low A1C measurements can occur when: 1. Anemia and/or hemolytic anemia is present. 2. Hemoglobin variants present. 3. Renal failure. 4. Transfusion of blood product in the last 120 days. We recommend ordering a fructosamine test([id number]) to more accurately assess glycemic status if any of the above conditions are present. Kasia Ernst [facility] CHEMISTRY ORDERABLES Final Re sult [facility] CLIA# [id number] [place] [address] * DIABETES FOOT EXAM (07/31/2020) Kasia Ernst [facility] HEALTH MAINTENANCE Edited Res ult - Final * (ABNORMAL) LIPID PANEL (03/08/2020 9:31 AM CDT) CHOLESTEROL 175 <200 mg/dL 03/08/2020 8:[address] [facility] TRIGLYCERIDE 174(H) <150 mg/dL 03/08/2020 8:[address] [facility] HDL 55 40 - 59 mg/dL 03/08/2020 8:[address] [facility] LDL CALCULATED 85 <100 mg/dL 03/08/2020 8:[address] [facility] NON-HDL CHOLESTEROL 120 <130 mg/dL 03/08/2020 8:[address] [facility] Blood Venipuncture / Unknown 03/08/2020 9:31 AM CDT 03/08/2020 7:[address] [facility] - 03/08/2020 8:56 PM CDT TOTAL CHOLESTEROL mg/dL Desirable <200 Borderline high 200-239 High >=240 TRIGLYCERIDES mg/dL Normal <150 Borderline high 150-199 High 200-499 Very high >=500 HDL CHOLESTEROL mg/dL Low <40 Normal 40-59 Desirable >=60 NON HDL CHOLESTEROL mg/dL Optimal <130 Near Optimal 130-159 Borderline High 160-189 Very High >=190 CALCULATED LDL mg/dL LDL <70, OPTIMAL if have Atherosclerotic cardiovascular disease (ASCVD) or intermediate or higher (>7.5%) 10 year risk of ASCVD including most adults with diabetes. LDL <100, Optimal in adult patients with low (<7.5%) 10 year ASCVD risk LDL 100-160, Suboptimal LDL >160, High LDL >190, Very high ATPIII Guidelines Reference Ranges for Lipid Panels (NCEP/AMA) . Kasia Ernst BRANCH LIBRARY CLERK CHEMISTRY ORDERABLES Final Re sult [facility]# [id number] [address] [place] [address] * XR DEXA BONE DENSITY AXIAL 1 OR MORE SITES (07/04/2019 2:34 PM PRESS READER) Anatomical Region Laterality Modality Digital Radiogra phy 07/04/2019 2:34 PM PRESS READER Impressions 07/04/2019 2:56 PM PRESS READER IMPRESSION: Stable abnormal examination Bone density lies in the osteoporotic range in the left proximal femur lying just below the average the patient's age-matched control having increased by comparison continuing to lie in the osteoporotic range. NOF guidelines recommend consideration of FDA-approved medical therapies in patients with T-scores of the spine or hip equal to or less than -2.5 or with FRAX determined 10-year probabilities of hip/major osteoporosis-related fractures equal or greater than 3%/20% respectively. Consider assessing fracture risk using the FRAX analysis tool for guidance of clinical management available online at www.shef.ac.uk/FRAX/. Enter Hologic for Select DXA and the Femoral Neck BMD value. Narrative 07/04/2019 2:56 PM PRESS READER DEXA Evaluation of the Lumbar Spine and Left Proximal Femur Reason for Consultation: Osteoporosis. Evaluation of bone mineral density. The following absorptiometry data were obtained. The quality of this examination is acceptable with regards to count density, processed images, data display and lack of important artifacts (including but not limited to motion and attenuation artifacts). Serial examination number two with comparison to a prior exam of 02/13/2011. Lumbar spine images demonstrate degenerative changes resulting in spurious elevation of bone density. L1-L4 BMD (g/cm2): 1.382 Adult T-score: 3.0 Adult Z-score: 5.8 Left Femoral Neck BMD (g/cm2): 0.538 Adult T-score: -2.8 Adult Z-score: -0.4 Left Total Hip BMD (g/cm2): 0.877 Adult T-score: -0.5 Adult Z-score: 1.7 Procedure Note Reinaldo Lawrence MD - 07/04/2019 DEXA Evaluation of the Lumbar Spine and Left Proximal Femur Reason for Consultation: Osteoporosis. Evaluation of bone mineral density. The following absorptiometry data were obtained. The quality of this examination is acceptable with regards to count density, processed images, data display and lack of important artifacts (including but not limited to motion and attenuation artifacts). Serial examination number two with comparison to a prior exam of 02/13/2011. Lumbar spine images demonstrate degenerative changes resulting in spurious elevation of bone density. L1-L4 BMD (g/cm2): 1.382 Adult T-score: 3.0 Adult Z-score: 5.8 Left Femoral Neck BMD (g/cm2): 0.538 Adult T-score: -2.8 Adult Z-score: -0.4 Left Total Hip BMD (g/cm2): 0.877 Adult T-score: -0.5 Adult Z-score: 1.7 IMPRESSION: Stable abnormal examination Bone density lies in the osteoporotic range in the left proximal femur lying just below the average the patient's age-matched control having increased by comparison continuing to lie in the osteoporotic range. NOF guidelines recommend consideration of FDA-approved medical therapies in patients with T-scores of the spine or hip equal to or less than -2.5 or with FRAX determined 10-year probabilities of hip/major osteoporosis-related fractures equal or greater than 3%/20% respectively. Consider assessing fracture risk using the FRAX analysis tool for guidance of clinical management available online at www.shef.ac.uk/FRAX/. Enter Hologic for Select DXA and the Femoral Neck BMD value. us Kasia Ernst [facility] DIAGNOSTIC IMAGING ORDERABLES Final Result * MICROALBUMIN/CREATININE RATIO, RANDOM UR (04/19/2018 10:22 AM CDT) MICROALBUMIN, URINE <1.2 No Reference Range mg/dL 04/19/2018 9:[address] [facility] CREATININE, URINE 144.6 29.0 - 226.0 mg/dL 04/19/2018 9:[address] [facility] Comment: Reference Range varies with fluid intake and diet. MICROALBUMIN/C REAT RATIO, UR <8.3 <25.0 mg/g 04/19/2018 9:[address] [facility] Urine URINE SPECIMEN OBTAINED BY CLEAN CATCH PROCEDURE / Unknown Collection / Unknown 04/19/2018 10:22 AM CDT 04/19/2018 8:[address] [facility] - 04/19/2018 9:10 PM CDT Condition Microalbumin/Creat ratio Normal Males <17 Normal Females <25 Microalbuminuria Males 17-299 Microalbuminuria Females 25-299 Overt proteinuria >=300 us Kasia Ernst [facility] URINE ORDERABLES Final Result [facility]# [id number] [place] [address] * DIABETES EYE EXAM (05/29/2017) us Abstract Spg Provider HEALTH MAINTENANCE Final R esult from Last 3 Months or Most Recently Relevant to Health Maintenance Insurance MEDICARE PART A AND B [facility] Care Teams Production Line Solderer Relationship Specialty Start Date End Date Lydia Cleaning DO [address] [place] [address] PCP - General Family Practice 04/23/10
--- OUTSIDE RECORDS SUMMARY | 2025-07-01 08:27 | XMS_ITS | Encounter Summary ---
Author Organization [facility] Address [address] [place] [address] Care Team Providers Care Insurance Account Specialist Name Role Phone Lydia Cleaning DO Primary Care Provider Encounter Details Date Type Department Care Team (Latest Contact Info) Description 11/27/[address]patient [address] 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
--- OUTSIDE RECORDS SUMMARY | 2025-07-01 08:27 | XMS_ITS | Encounter Summary ---
Author Organization [facility] Address [address] [place] [address] Care Team Providers Care Clinical Evaluator Name Role Phone Lydia Cleaning DO Primary Care Provider Encounter Details Date Type Department Care Team (Latest Contact Info) Description 09/24/2005 Outpatient Historical [facility] Family Medicine- [place] [address] [place] [address] Mike Hardy, MARKETING INTELLIGENCE MANAGER [address], [place] [id number] FLU W RESP MANIFEST NEC (Primary Dx) Social History Tobacco Use Types Packs/Day Years Used Date Smoking Tobacco: Never Assessed Comments Unknown Sex and Gender Information Value Date Recorded Sex Assigned at Not on file 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
--- OUTSIDE RECORDS SUMMARY | 2025-07-01 08:27 | XMS_ITS | Encounter Summary ---
Author Organization [facility] Address [address] [place] [address] Care Team Providers Care Child Support Officer Name Role Phone Lydia Cleaning DO Primary Care Provider Encounter Details Date Type Department Care Team (Latest Contact Info) Description 08/29/2004 Outpatient Historical [facility]- [place] [address] [facility] [place] [address] Waqar Hough MD [address] [place] [phone] ARTHROPATHY NOS-UNSPEC (Primary Dx); CARPAL TUNNEL SYNDROME Social History Tobacco Use Types Packs/Day Years Used Date Smoking Tobacco: Never Assessed Comments Unknown Sex and Gender Information Value Date Recorded Sex Assigned at Not on file 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
--- OUTSIDE RECORDS SUMMARY | 2025-07-01 08:27 | XMS_ITS | Encounter Summary ---
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) (Primary Dx) Social History Tobacco Use Types Packs/Day Years Used Date Smoking Tobacco: Never Assessed Comments Unknown Sex and Gender Information Value Date Recorded Sex Assigned at Not on file 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
--- OUTSIDE RECORDS SUMMARY | 2025-07-01 08:27 | XMS_ITS | Encounter Summary ---
Author Organization [facility] Address [address] [place] [address] Care Team Providers Care Oracle Pl Sql Developer Name Role Phone Lydia Cleaning DO Primary Care Provider Encounter Details Date Type Department Care Team (Latest Contact Info) Description 02/16/1998 Outpatient Historical [facility]- [address]tr[address], 3rd [place] [address] Hematuria (Primary Dx) Social History Tobacco Use Types Packs/Day Years Used Date Smoking Tobacco: Never Assessed Comments Unknown Sex and Gender Information Value Date Recorded Sex Assigned at Not on file 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
--- OUTSIDE RECORDS SUMMARY | 2025-07-01 08:27 | XMS_ITS | Encounter Summary ---
Author Organization [facility] Address [address] [place] [address] Care Team Providers Care Salesperson Yard Goods Name Role Phone Lydia Cleaning DO Primary Care Provider Encounter Details Date Type Department Care Team (Latest Contact Info) Description 10/31/2005 Outpatient Historical [facility] Pulmonology-[facility] [place] [address] [place] [address] Brent Rascon MD NO ADDRESS ON FILE Unspecified Asthma (Primary Dx); Chronic Airway Obstruction, not Elsewhere Classified (CMS/HCC) Social History Tobacco Use Types Packs/Day Years Used Date Smoking Tobacco: Never Assessed Comments Unknown Sex and Gender Information Value Date Recorded Sex Assigned at Not on file 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
--- OUTSIDE RECORDS SUMMARY | 2025-07-01 08:27 | XMS_ITS | Encounter Summary ---
Author Organization [facility] Address [address] [place] [address] Care Team Providers Care Cage Manager Name Role Phone Lydia Cleaning DO Primary Care Provider [phone] Reason for Visit * Reason Comments Provider Call Encounter Details Date Type Department Care Team (Late st Contact Info) Description 03/02/2025 Telephone [facility] Medicine [place] [address] [place] [address] Lydia Cleaning DO [address] [place] [address] Provider Call Social History Tobacco Use Types Packs/Day Years Used Date Smoking Tobacco: Never Passive Smoke Exposure: Never Smokeless Tobacco: Never Alcohol Use Standard Drinks/Week Comments No 0 (1 standard drink = 0.6 oz pur e alcohol) Comments No Sex and Gender Information Value Date Recorded Sex Assigned at Not on file Legal Sex Female 3:07 AM ACTIVITY AIDE Gender Identity Not on file Sexual Orientation Not on file documented as of this encounter Miscellaneous Notes * Telephone Encounter - James Fletcher - 03/02/2025 12:25 PM CDT Copied from [facility] #[id number]. Topic: Dsguyusx-Tt-Ehfwmnyg Call >> Mar 02, 2025 12:24 PM James Porter wrote: Caller is requesting to speak with Clinical Care Team. Caller Name: Edna Poe Callback Number: [phone] Is the caller a Physician, Nurse Practitioner or Physician Coin Wrapping Machine Operator? No Call Notes: sleep apnea test can not be done without the oxygen due to being uncomfortable. Wantingpermission change the test conditions to allow patient to do test with oxygen. Is this addressing an immediate patient care need? No documented in this encounter Plan of Treatment Not on file documented as of this encounter Visit Diagnoses Not on filedocumented in this encounter Additional Health Concerns Assessment Noted Time PHQ-9 Depression Total Score: 2 11/25/19 10:53 AM CDT documented as of this encounter Care Teams Cage Manager Relationship Specialty Start Date End Date Lydia Cleaning DO [address] [place] [address] PCP - General Family Practice 04/23/10 documented as of this encounter
--- OUTSIDE RECORDS SUMMARY | 2025-07-01 08:27 | XMS_ITS | Encounter Summary ---
Author Organization [facility] Address [address] [place] [address] Care Team Providers Care Population Geneticist Name Role Phone Lydia Cleaning DO Primary Care Provider Encounter Details Date Type Department Care Team (Latest Contact Info) Description 11/30/2003 Outpatient Historical [facility] Medicine- [place] [address] [place] [facility] [place] [address] Waqar Hough MD [address] [place] [phone] MONONEURITIS NOS (Primary Dx) Social History Tobacco Use Types Packs/Day Years Used Date Smoking Tobacco: Never Assessed Comments Unknown Sex and Gender Information Value Date Recorded Sex Assigned at Not on file 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
--- OUTSIDE RECORDS SUMMARY | 2025-07-01 08:27 | XMS_ITS | Encounter Summary ---
Author Organization [facility] Address [address] [place] [address] Care Team Providers Care Dot Etcher Name Role Phone Lydia Cleaning Mook EATON Primary Care Provider [phone] Encounter Details Date Type Department Care Team (Latest Contact Info) Description 11/05/2005 Outpatient Historical [facility] Imaging Services [address] [place] [address] Merrick Royal Jr., MD NO ADDRESS ON FILE Abn Find-Body Struct NEC (Primary Dx) Social History Tobacco Use Types Packs/Day Years Used Date Smoking Tobacco: Never Assessed Comments Unknown Sex and Gender Information Value Date Recorded Sex Assigned at Not on file 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 Two small calculi within the pelvis favoring phleboliths. IMPRESSION: Nonspecific exam. sara Dictated By: Marina Faith M.D. Electronically Signed By: Marina Faith M.D. Date Signed: 11/05/05 SARA Procedure Note Provider, Historical - 06/20/2009 KUB DATE OF EXAMINATION: 11/05/05 Bowel gas pattern nonspecific. Two small calculi within the pelvisfavoring phleboliths. IMPRESSION: Nonspecific exam. sara Dictated By: Marina Faith M.D. Electronically Signed By: Marina Faith M.D. Date Signed: 11/05/05 SARA us Merrick Royal Jr., MD DIAGNOSTIC IMAGING ORDERABL ES Final Result documented in this encounter Visit Diagnoses Diagnosis Nonspecific abnormal findings on radiological and other examination of other site of body- Primary documented in this encounter Care Teams Dot Etcher Relationship Specialty Start Date End Date Lydia Cleaning DO [address] [place] [address] PCP - General Family Practice 04/23/10 documented as of this encounter
--- OUTSIDE RECORDS SUMMARY | 2025-07-01 08:27 | XMS_ITS | Encounter Summary ---
Author Organization [facility] Address [address] [place] [address] Care Team Providers Care Supervisor Cell Operation Name Role Phone Lydia Cleaning DO Primary Care Provider [phone] Reason for Visit * Reason Comments Patient Communication Encounter Details Date Type Department Care Team (Late st Contact Info) Description 06/28/2025 Telephone [facility] Medicine [place] [address] [place] [address] Lydia Claening DO [address] [place] [address] Patient Communication Social History Tobacco Use Types Packs/Day Years Used Date Smoking Tobacco: Never Passive Smoke Exposure: Never Smokeless Tobacco: Never Alcohol Use Standard Drinks/Week Comments No 0 (1 standard drink = 0.6 oz pur e alcohol) Comments No Sex and Gender Information Value Date Recorded Sex Assigned at Not on file Legal Sex Female 3:07 AM DIRECTOR 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 Topic: CPA Information Request >> Jun 28, 2025 2:55 PM Nicky Mahan wrote: Caller is returning phone call from clinic. Caller Name: Yelitza Pisano Patient/Caregiver Callback Number: [phone] Clinic Did Not Leave Note In Chart Call Notes: Patient/Caller returning call, no note documented with instructions from clinic. Attempted transfer to Backline/MATERIAL SCHEDULER Line and no answer, message routed to Process and Plant Sales. CTOR [employer] documented in this encounter Plan of Treatment Not on file documented as of this encounter Visit Diagnoses Not on filedocumented in this encounter Additional Health Concerns Assessment Noted Time PHQ-9 Depression Total Score: 2 11/25/19 10:53 AM CDT documented as of this encounter Care Teams Supervisor Cell Operation Relationship Specialty Start Date End Date Lydia Cleaning DO [address] [place] [address] PCP - General Family Practice 04/23/10 documented as of this encounter
--- OUTSIDE RECORDS SUMMARY | 2025-07-01 08:27 | XMS_ITS | Encounter Summary ---
Author Organization [facility] Address [address] [place] [address] Care Team Providers Care Roller Printer Name Role Phone Lydia Cleaning DO Primary Care Provider Encounter Details Date Type Department Care Team (Latest Contact Info) Description 05/27/2005 Outpatient Historical [facility] Medicine- [place] [address] [place] [facility] [place] [address] Waqar Hough MD [address] [place] [phone] CHRONIC SINUSITIS NOS (Primary Dx); ALLERGY, UNSPECIFIED Social History Tobacco Use Types Packs/Day Years Used Date Smoking Tobacco: Never Assessed Comments Unknown Sex and Gender Information Value Date Recorded Sex Assigned at Not on file 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
--- OUTSIDE RECORDS SUMMARY | 2025-07-01 08:27 | XMS_ITS | Encounter Summary ---
Author Organization 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
--- OUTSIDE RECORDS SUMMARY | 2025-07-01 08:27 | XMS_ITS | Encounter Summary ---
Author Organization [facility] Address [address] [place] [address] Care Team Providers Care Sales And Service Consultant Name Role Phone Lydia Cleaning DO Primary Care Provider Encounter Details Date Type Department Care Team (Latest Contact Info) Description 02/27/2004 Outpatient Historical [facility] Medicine- [place] [address] [facility] [place] [address] Waqar Hough MD [address] [place] [phone] Rectal/anal hemorrhage (Primary Dx); SCREENING MAL NEOP-COLON Social History Tobacco Use Types Packs/Day Years Used Date Smoking Tobacco: Never Assessed Comments Unknown Sex and Gender Information Value Date Recorded Sex Assigned at Not on file 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
--- OUTSIDE RECORDS SUMMARY | 2025-07-01 08:27 | XMS_ITS | Encounter Summary ---
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 Gender Identity Not on file Sexual Orientation Not on file documented as of this encounter Plan of Treatment Not on file documented as of this encounter Procedures Procedure Name Priority Date/Time Associated Diagnosis Comments CARDIAC ENZYMES Routine 11/19/2004 4:11 AM CDT CARDIAC ENZYMES Routine 11/18/2004 10:10 PM CDT CARDIAC ENZYMES Routine 11/18/2004 4:07 PM CDT CBC WITH DIFFERENTIAL Routine 11/18/2004 4:07 PM CDT PTT Routine 11/18/2004 4:07 PM CDT PROTIME-INR Routine 11/18/2004 4:07 PM CDT BASIC METABOLIC PANEL Routine 11/18/2004 4:07 PM CDT documented in this encounter Results * CARDIAC ENZYMES (11/19/2004 4:11 AM CDT) CKMB 1.0 0.0 - 5.0 ng/mL INTERFACE SYSTEM Comment: As of 04 at 14:30 [facility] has changed the methodology for CK-MB and with this change the reference range has changed from 0-5.5 ng/ml to 0-5.0 ng/ml TROPONIN I <0.1 0.0 - 1.5 ng/mL INTERFACE SYSTEM Comment: As of 04 at 14:30 [facility] has changed the methodology for Troponin but the reference range of 1.5 ng/ml has remained the same. 11/19/2004 4:11 AM CDT us Jose G Mendoza MD CHEMISTRY ORDERABLES Final Resu lt Performing Organization Address [facility] de Phone Number INTERFACE SYSTEM Refer to clinic/hospital department * CARDIAC ENZYMES (11/18/2004 10:10 PM CDT) CKMB 1.4 0.0 - 5.0 ng/mL INTERFACE SYSTEM Comment: As of 04 at 14:30 [facility] has changed the methodology for CK-MB and with this change the reference range has changed from 0-5.5 ng/ml to 0-5.0 ng/ml TROPONIN I <0.1 0.0 - 1.5 ng/mL INTERFACE SYSTEM Comment: As of 04 at 14:30 [facility] has changed the methodology for Troponin but the reference range of 1.5 ng/ml has remained the same. 11/18/2004 10:1 0 PM CDT us Jose G Mendoza MD CHEMISTRY ORDERABLES Final Resu lt Performing Organization Address [facility] Co de Phone Number INTERFACE SYSTEM Refer to clinic/hospital department * (ABNORMAL) CBC WITH DIFFERENTIAL (11/18/2004 4:07 PM CDT) WBC 10.0 4.8 - 10.8 K/ul INTERFACE SYSTEM RBC 5.06 4.20 - 5.40 Mil/ul INTERFACE SYSTEM HEMOGLOBIN 16.1(H) 12.0 - 16.0 g/dL INTERFACE SYSTEM HEMATOCRIT 48.0(H) 36.0 - 46.0 % INTERFACE SYSTEM MCV 94.9 84.0 - 103.0 Fl INTERFACE SYSTEM MCH 31.8 27.0 - 34.0 pg INTERFACE SYSTEM MCHC 33.5 30.0 - 35.0 g/dL INTERFACE SYSTEM RDW 13.6 11.0 - 14.5 percent(in active) INTERFACE SYSTEM PLATELETS 234 140 - 440 K/ul INTERFACE SYSTEM MPV 10.2 8.9 - 12.8 Fl INTERFACE SYSTEM NEUTROPHILS 66.7 42.2 - 75.2 percent(in active) INTERFACE SYSTEM LYMPHOCYTES 24.8 24.0 - 44.0 percent(in active) INTERFACE SYSTEM MONOCYTES 7.4 2.0 - 10.0 percent(in active) INTERFACE SYSTEM EOSINOPHILS 0.9 0.0 - 7.0 % INTERFACE SYSTEM BASOPHILS 0.2 0.0 - 1.0 percent(in active) INTERFACE SYSTEM NEUTROPHIL ABSOLUTE 6.6 2.0 - 8.0 K/uL INTERFACE SYSTEM LYMPHOCYTE ABSOLUTE 2.5 1.2 - 4.0 K/ul INTERFACE SYSTEM MONOCYTE ABSOLUTE 0.7(H) 0.1 - 0.6 K/ul INTERFACE SYSTEM EOSINOPHIL ABSOLUTE 0.1 0.0 - 0.7 K/ul INTERFACE SYSTEM BASOPHILS ABSOLUTE 0.0 0.0 - 0.2 K/ul INTERFACE SYSTEM 11/18/2004 4:07 PM CDT Jose G Mendoza MD HEMATOLOGY ORDERABLES Final Res ult INTERFACE SYSTEM Refer to clinic/hospital department * PTT (11/18/2004 4:07 PM CDT) PTT 26.2 24.3 - 37.5 Secs INTERFACE SYSTEM Comment:Therapeutic Range: 11/18/2004 4:07 PM CDT Jose G Mendoza MD HEMATOLOGY ORDERABLES Final Res ult INTERFACE SYSTEM Refer to clinic/hospital department * PROTIME-INR (11/18/2004 4:07 PM CDT) PROTIME 14.2 12.4 - 14.9 Secs INTERFACE SYSTEM Comment: As of 04 note change in normal range. INR 1.0 INTERFACE SYSTEM Comment: Expected Values for INR: DVT/PE Goal INR 2.5; range 2.0 - 3.0 Valve Replacement Tissue Goal INR 2.5; range 2.0 - 3.0 Mechanical Goal INR 3.0; range 2.5 - 3.5 POST-KS Goal INR 2.5; range 2.0 - 3.0 or Goal 3.0; range 2.5 - 3.5 Atrial Fibrillation Goal INR 2.5; range 2.0 - 3.0 Ischemic Stroke Goal INR 2.5; range 2.0 - 3.0 For additional information see Guidelines for Anticoagulation available from the pharmacy [facility]. 11/18/2004 4:07 PM CDT us Jose G Mendoza MD HEMATOLOGY ORDERABLES Final Res ult INTERFACE SYSTEM Refer to clinic/hospital department * (ABNORMAL) BASIC METABOLIC PANEL (11/18/2004 4:07 PM CDT) GLUCOSE 90 70 - 110 mg/dL INTERFACE SYSTEM BUN 30(H) 7 - 17 mg/dL INTERFACE SYSTEM CREATININE 1.0 0.7 - 1.2 mg/dL (inactive) INTERFACE SYSTEM SODIUM 142 136 - 145 mEq/L INTERFACE SYSTEM POTASSIUM 4.6 3.5 - 5.0 mEq/L INTERFACE SYSTEM Comment:Specimen slightly he molyzed CHLORIDE 105 95 - 110 mEq/L INTERFACE SYSTEM CO2 28 22 - 32 mmol/l INTERFACE SYSTEM ANION GAP 14 9 - 20 mEq/L INTERFACE SYSTEM OSMOLALITY, CALCULATED 298(H) 275 - 295 mOsm/Kg INTERFACE SYSTEM CALCIUM 10.6(H) 8.4 - 10.5 mg/dL INTERFACE SYSTEM 11/18/2004 4:07 PM CDT us Jose G Mendoza MD CHEMISTRY ORDERABLES Final Resu lt Performing Organization Address [facility] de Phone Number INTERFACE SYSTEM Refer to clinic/hospital department * CARDIAC ENZYMES (11/18/2004 4:07 PM CDT) CKMB 1.1 0.0 - 5.0 ng/mL INTERFACE SYSTEM Comment: As of 04 at 14:30 [facility] has changed the methodology for CK-MB and with this change the reference range has changed from 0-5.5 ng/ml to 0-5.0 ng/ml TROPONIN I <0.1 0.0 - 1.5 ng/mL INTERFACE SYSTEM Comment: As of 04 at 14:30 [facility] has changed the methodology for Troponin but the reference range of 1.5 ng/ml has remained the same. 11/18/2004 4:07 PM CDT Jose G Mendoza MD CHEMISTRY ORDERABLES Final Resu Performing Organization Address [facility] de Phone Number INTERFACE SYSTEM Refer to clinic/hospital department documented in this encounter Visit Diagnoses Diagnosis Esophageal reflux- Primary documented in this encounter Care Teams Superintendent Schools Relationship Specialty Start Date End Date Lydia Cleaning DO [address] [place] [address] PCP - General Family Practice 04/23/10 documented as of this encounter
--- OUTSIDE RECORDS SUMMARY | 2025-07-01 08:27 | XMS_ITS | Encounter Summary ---
Author Organization [facility] Address [address] [place] [address] Care Team Providers Care Structured Cabling Technician Name Role Phone Lydia Cleaning DO Primary Care Provider Encounter Details Date Type Department Care Team (Latest Contact Info) Description 03/15/2004 Outpatient Historical [facility] [place] [address] [place] [phone] Waqar Hough MD [address] [place] [phone] Pain in limb (Primary Dx); URINARY FREQUENCY Social History Tobacco Use Types Packs/Day Years Used Date Smoking Tobacco: Never Assessed Comments Unknown Sex and Gender Information Value Date Recorded Sex Assigned at Not on file 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
--- OUTSIDE RECORDS SUMMARY | 2025-07-01 08:27 | XMS_ITS | Encounter Summary ---
Author Organization [facility] Address [address] [place] [address] Care Team Providers Care Blood Typer Name Role Phone Lydia Cleaning DO Primary Care Provider Encounter Details Date Type Department Care Team (Latest Contact Info) Description 11/18/2004 Outpatient Historical [facility] [place] [address] 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 [facility] [place] [phone] PCP - General Family Practice 04/23/10 documented as of this encounter
--- OUTSIDE RECORDS SUMMARY | 2025-07-01 08:27 | XMS_ITS | Clinical Summary ---
Author Organization [facility] Address [address] [place] [address] Care Team Providers Care Distribution Accounting Clerk Name Role Phone Lydia Cleaning Primary Care Provider Allergies Active Allergy Reactions [...] High 03/01/2013 Triamterene-Hydrochlorothiazid Hives High 05/31 Medications levothyroxine 50 mcg tabletIndicatio ns:Hypothyroidi sm due to acquired atrophy of thyroid Take 1 Tablet (50 mcg) by mouth daily in the morning. 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 90 Tablet 1 01/11/20 25 Active polyethylene glycol 3350 (MIRALAX) 17 gram/dose Powder MIX 17GM (1 CAPFUL) IN WATER OR JUICE DAILY DIRECTED 17 Gram 2 01/11/20 25 Active allopurinoL (ZYLOPRIM) 100 mg tabletIndicatio ns:Gout, unspecified cause, unspecified chronicity, unspecified site TAKE ONE TABLET BY MOUTH DAILY 90 Tablet 01/11/20 25 Active Miscellaneous Medical SupplyIndicatio ns:Arthritis of knee, left Knee support brace. 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 180 Tablet 3 01/23/20 25 Active overnight pulse oximetry Overnight pulse oximetry: One time overnight pulse oximetry test on room air. 1 Each 02/29/20 25 Active furosemide (LASIX) 20 mg tablet TAKE ONE TABLET BY MOUTH DAILY 120 Tablet 03/07/20 25 Active ALPRAZolam (XANAX) 0.5 mg tabletIndicatio ns:FLAKITA (generalized anxiety disorder) TAKE ONE TABLET BY MOUTH EVERY EIGHT hours NEEDED FOR ANXIETY. 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, without long-term current use of insulin 12/30/2017 Type 2 DM with diabetic peripheral angiopathy w/ o gangrene 10/23/2017 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 hout current pathological fracture 03/02/2017 Gastroesophageal reflux disease without esophagi tis 03/02/2017 Idiopathic chronic gout of multiple sites withou t tophus 04/08/2016 Chronic midline low back pain with bilateral sci atica 05/02/2014 Primary insomnia 04/28/2014 Hypothyroidism due to acquired atrophy of thyroi d 03/16/2014 Macular degeneration 06/22/2009 PVD (peripheral vascular disease) 05/26/2009 Benign paroxysmal positional vertigo due to bilateral vestibular disorder 04/25/2009 FLAKITA (generalized anxiety disorder) 11/03/2008 Chronic obstructive pulmonary disease, unspecifi ed Essential hypertension Mixed hyperlipidemia Overview (11/28/2020): Managed by Dr. Royal Seasonal allergic rhinitis due to pollen Hypercalcemia Overview (11/28/2020): Managed by Dr. Royal Primary osteoarthritis involving multiple joints Resolved Problems Problem Noted Date Diagnosed Date Resolved Date Hospice care 05/27/2023 11/08/2024 Hospice care patient 05/11/2023 025 Chronic respiratory failure with hypoxia and hypercapnia 04/07/2021 11/27/2021 Peripheral edema 07/07/2008 11/08/2024 Controlled type 2 diabetes m ellitus without complication, without long-term current use of insulin 04/07/2021 Overview (11/28/2020): Managed by Dr. Royal Encounters Date Type Department Care Team Description 06/28/2025 Telephone [facility] [address] [place] [address] Lydia Cleaning DO Patient Communication 06/20/2025 External Device Data ST[facility] ABSTRACTION Provider, Abstract 06/20/2025 Telephone [facility] [address] [place] [address] Lydia Cleaning DO Needs Orders Written 06/06/2025 Results Follow-Up [address] [address] Cheryl Patino FNP HEMOGLOBIN A1C 06/02/2025 3:00 PM CDT Office Visit [address] [address] Cheryl Patino FNP Diabetic eye exam ([facility]/HCC) (Primary Dx); Chronic obstructive pulmonary disease, unspecified COPD type ([facility]/HCC); Type 2 diabetes mellitus with diabetic peripheral angiopathy without gangrene, without long-term current use of insulin ([facility]) 06/02/2025 Orders Only [facility] [address] [place] [address] [employer], AGRIBUSINESS PROFESSOR Asthma with acute exacerbation, unspecified asthma severity, unspecified whether persistent (Primary Dx) 06/02/2025 Nurse Triage [facility] [address] [place] [facility] [address] Lydia Cleaning, 06/02/2025 Refill [facility] [address] [place] [address] Lydia Cleaning, DO FLAKITA (generalized anxiety disorder) 04/21/2025 Refill [facility] [address] [place] [facility] [address] Lydia Cleaning, 04/11/2025 External Device Data ST[place] ABSTRACTION Provider, Abstract from Last 3 Months Immunizations Immunization Administration Dates Next Due (ADACEL/BOOSTRIX)(10 [...] Passive Smoke Exposure: Never Smokeless Tobacco: Never Tobacco Cessation:Counseling Given: No Alcohol Use Standard Drinks/Week Comments No 0 (1 standard drink = 0.6 oz pur e alcohol) Comments No Sex and Gender Information Value Date Recorded Sex Assigned at Not on file Legal Sex Female 3:07 AM CHANNELER OUTSOLE Gender Identity Not on file Sexual Orientation Not on file Last Filed Vital Signs Vital Sign Reading Time Taken Comments Blood Pressure 130/82 06/02/2025 2:57 PM CDT Pulse 83 06/02/2025 2:57 PM CDT Temperature 36.4 C (97.6 F) 06/02/2025 2:57 PM CDT Respiratory Rate 18 06/02/2025 2:57 PM CDT Oxygen Saturation 94% 06/02/2025 2:57 PM CDT Inhaled Oxygen Concentration - - Weight 62.1 kg (137 lb) 06/02/2025 2:57 PM CDT Height 152.4 cm (5') 06/02/2025 2:57 PM CDT Body Mass Index 26.76 06/02/2025 2:57 PM CDT Plan of Treatment Health Maintenance Due Date Last Done Comments Traditional Medicare (ACO) A nnual Wellness Visit 1954 ZOSTER VACCINE (1 of 2) 1986 RSV VACCINE (60+ or ) (1 - 1-dose 75+ series) 2011 DIABETES MICROALBUMIN ANNUAL SCREEN 04/19/2019 04/19/2018, 03/02/2017 DTAP/TDAP/TD VACCINES (2 - T d or Tdap) 07/31/2019 07/31/2009 PNEUMOCOCCAL VACCINE 50+ YEA RS (3 of 3 - PCV20 or PCV21) 07/06/2020 05/11/2020, 08/03/1995 DIABETES ANNUAL FOOT EXAM 07/31/20212019, 07/31/2020, 10/21/2018, Additional history exists OSTEOPOROSIS SCREENING 07/04/2024 9, 07/04/2019, 08/13/2016, Additional history exists INFLUENZA VACCINE (#1) 2025 0, 05/19/2019, 04/19/2018, Additional history exists LDL CHOLESTEROL ANNUAL 11/08/2025 5, 08/28/2021, 03/08/2020, Additional history exists DIABETES HBA1C Q 6 MONTHS 11/30/20252024, 11/08/2024, 08/28/2021, Additional history exists DIABETES ANNUAL RETINAL EXAM 06/02/2026, 06/17/2023, 09/11/2021, Additional history exists DIABETES: A1C (Auto Order) 06/02/202606/02, 11/08/2024, 08/28/2021, Additional history exists Procedures Procedure Name Priority Date/Time Associated Diagnosis Comments HEMOGLOBIN A1C Routine 06/02/2025 3:33 PM CDT Type 2 diabetes mellitus with diabetic peripheral angiopathy without gangrene, without long-term current use of insulin ([facility]) LIPID PANEL Routine 11/08/2024 9:35 AM CDT Essential hypertension Hypothyroidism due to acquired atrophy of thyroid Type 2 diabetes mellitus with stage 3a chronic kidney disease, without long-term current use of insulin ([facility]) Mixed hyperlipidemia DIABETES EYE EXAM Routine 09/11/2021 DIABETES FOOT EXAM 07/31/2020 12:00 AM CHANNELER OUTSOLE XR DEXA BONE DENSITY AXIAL 1 OR MORE SITES Routine 07/04/2019 2:34 PM CHANNELER OUTSOLE Post-menopausal MICROALBUMIN/CREATI NINE RATIO, RANDOM UR Routine 04/19/2018 10:22 AM CDT from Last 3 Months or Most Recently Relevant to Health Maintenance Results * HEMOGLOBIN A1C (06/02/2025 3:33 PM CDT) HEMOGLOBIN A1C 5.5 <5.7 % [facility] Comment: For the purpose of screening for the presence of diabetes: <5.7% Consistent with the absence of diabetes 5.7-6.4% Consistent with increased risk for diabetes (prediabetes) > or =6.5% Consistent with diabetes This assay result is consistent with a decreased risk of diabetes. Currently, no consensus exists regarding use of hemoglobin A1c for diagnosis of diabetes in children. According to [place] Diabetes Association (ADA) guidelines, hemoglobin A1c <7.0% represents optimal control in non- diabetic patients. Different metrics may apply to specific patient populations. Standards of Medical Care in Diabetes(ADA). ESTIMATED AVERAGE GLUCOSE (MG/DL) 111 mg/dL [facility] ESTIMATED AVERAGE GLUCOSE (MMOL/L) 6.2 mmol/L [facility] Comment: Test Performed at: [facility] [id number] [facility] [place] [address] Andria Maradiaga MD Blood 06/02/2025 3:33 PM CDT 06/03/2025 4:31 AM CDT Cheryl Patino [facility] CHEMISTRY ORDERABLES Final Result [facility] [phone] [facility] [place] [address] * (ABNORMAL) LIPID PANEL (11/08/2024 9:35 AM CDT) CHOLESTEROL 253(H) <200 mg/dL [facility] HDL 54 > OR = 50 mg/dL [facility] TRIGLYCERIDE 179(H) <150 mg/dL [facility] LDL CALCULATED 166(H) mg/dL (calc) [facility] Comment: Reference range: <100 Desirable range <100 mg/dL for primary prevention; <70 mg/dL for patients with CHD or diabetic patients with > or = 2 CHD risk factors. LDL-C is now calculated using the Dmitriy-Geoff calculation, which is a validated novel method providing better accuracy than the Friedewald equation in the estimation of LDL-C. Dmitriy SS et al. OCHOA. 2013;310(19): 2725-6771 (http://education.PEAK Surgical/faq/JQV689) CHOL/HDL RATIO 4.7 <5.0 (calc) [facility] NON-HDL CHOLESTEROL 199(H) <130 mg/dL (calc) [facility] Comment: For patients with diabetes plus 1 major ASCVD risk factor, treating to a non-HDL-C goal of <100 mg/dL (LDL-C of <70 mg/dL) is considered a therapeutic option. Test Performed at: [facility] [address] [place] [address] Andria Maradiaga MD Blood 11/08/2024 9:35 AM CDT 11/08/2024 9:36 AM CDT Lydia Cleaning DO CHEMISTRY ORDERABLES Final Result [facility] [phone] [facility] [address] [place] [address] * HM DIABETES EYE EXAM (09/11/2021) us Abstract Provider HEALTH MAINTENANCE Final Resul t * HM DIABETES FOOT EXAM (07/31/2020 12:00 AM CHANNELER OUTSOLE) Kasia Ernst AGRIBUSINESS PROFESSOR HEALTH MAINTENANCE Edited Res ult - Final * XR DEXA BONE DENSITY AXIAL 1 OR MORE SITES (07/04/2019 2:34 PM CHANNELER OUTSOLE) Anatomical Region Laterality Modality Other Impressions 07/04/2019 2:56 PM CHANNELER OUTSOLE Stable abnormal examination Bone density lies in [...] Neck BMD value. Narrative 07/04/2019 2:56 PM CHANNELER OUTSOLE DEXA Evaluation of the Lumbar Spine and [...] 1.7 Procedure Note Reinaldo Lawrence MD - 12/25/2020 DEXA Evaluation of the Lumbar Spine and [...] 0.877 Adult T-score: -0.5 Adult Z-score: 1.7 IMPRESSION Stable abnormal examination Bone density lies in [...] clinical management available online at [email or web address] Enter [employer] for Select DXA and the Femoral Neck BMD value. us Kasia Ernst [facility] DIAGNOSTIC IMAGING ORDERABLES Final Result * MICROALBUMIN/CREATININE RATIO, RANDOM UR (04/19/2018 10:22 AM CDT) MICROALBUMIN, URINE <1.2 No Reference Range mg/dL 04/19/2018 9:[address] [facility] CREATININE, URINE 144.6 29.0 - 226.0 mg/dL 04/19/2018 9:[address] [facility] Comment: Reference Range varies with fluid intake and diet. MICROALBUMIN/C REAT RATIO, UR <8.3 <25.0 mg/g 04/19/2018 9:[address] [facility] Urine URINE SPECIMEN OBTAINED BY CLEAN CATCH PROCEDURE / Unknown Collection / Unknown 04/19/2018 10:22 AM CDT 04/19/2018 8:[address] [facility] - 04/19/2018 9:10 PM CDT Condition Microalbumin/Creat ratio Normal Males <17 Normal Females <25 Microalbuminuria Males 17-299 Microalbuminuria Females 25-299 Overt proteinuria >=300 us Kasia Ernst [facility] URINE ORDERABLES Final Result [facility] IA# [id number] [address] [place] [id number] from Last 3 Months or Most Recently Relevant to Health Maintenance Insurance MEDICARE PART A AND B Care Teams Distribution Accounting Clerk Relationship Specialty Start Date End Date Lydia Cleaning DO [address] [place] [phone] PCP - General Family Practice 04/23/10
--- OUTSIDE RECORDS SUMMARY | 2025-07-01 08:27 | XMS_ITS | Encounter Summary ---
Author Organization [facility] Address [address] [place] [address] Care Team Providers Care Technical Support Internship Name Role Phone Lydia Cleaning DO Primary Care Provider Encounter Details Date Type Department Care Team (Latest Contact Info) Description 05/20/2005 Outpatient Historical [facility] Medicine- [place] [address] [facility] [place] [address] Waqar Hough MD [address] [place] [address] ALLERGY, UNSPECIFIED (Primary Dx) Social History Tobacco Use Types Packs/Day Years Used Date Smoking Tobacco: Never Assessed Comments Unknown Sex and Gender Information Value Date Recorded Sex Assigned at Not on file 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
--- OUTSIDE RECORDS SUMMARY | 2025-07-01 08:27 | XMS_ITS | Encounter Summary ---
Author Organization [facility] Address [address] [place] [address] Care Team Providers Care Business Planner Name Role Phone Lydia Cleaning DO Primary Care Provider Encounter Details Date Type Department Care Team (Latest Contact Info) Description 06/01/1998 Outpatient Historical [facility] [address] [place] [phone] Jose G Sood MD NO ADDRESS ON FILE Unspecified sleep apnea (Primary Dx) Social History Tobacco Use Types Packs/Day Years Used Date Smoking Tobacco: Never Assessed Comments Unknown Sex and Gender Information Value Date Recorded Sex Assigned at Not on file Legal Sex Female 3:49 AM 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
--- OUTSIDE RECORDS SUMMARY | 2025-07-01 08:27 | XMS_ITS | Encounter Summary ---
Author Organization Address [address] [place] [address] Care Team Providers Care Parking Inspector Name Role Phone Lydia Cleaning DO Primary Care Provider [phone] Reason for Visit * Reason Comments Needs Orders Written Encounter Details Date Type Department Care Team (Late st Contact Info) Description 02/15/2025 Telephone [facility] Medicine [place] [address] [place] [phone] Lydia Cleaning DO [address] [place] [address] Needs Orders Written Social History Tobacco Use Types Packs/Day Years Used Date Smoking Tobacco: Never Passive Smoke Exposure: Never Smokeless Tobacco: Never Alcohol Use Standard Drinks/Week Comments No 0 (1 standard drink = 0.6 oz pur e alcohol) Comments No Sex and Gender Information Value Date Recorded Sex Assigned at Not on file Legal Sex Female 3:07 AM 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 Pt is unable to use meter because of her arthritis. Ly POWER * Telephone Encounter - Roger Jordan - 02/15/2025 11:23 AM CDT Copied from [facility] #[id number]. Topic: CPA Information Request - Order or Referral Request >> Feb 15, 2025 11:22 AM Roger Washington wrote: Caller Name: Yelitza Pisano Patient/Caregiver Callback Number: [phone] Call Notes: Patient has injured her arm and she is really needing a referral to home health to helpher bath and around the home Please call back with any questions Caller is requesting: New Referral Has the patient been seen for this issue? NO Patient is not wanting an appointment at this time documented in this encounter Plan of Treatment Not on file documented as of this encounter Visit Diagnoses Not on filedocumented in this encounter Additional Health Concerns Assessment Noted Time PHQ-9 Depression Total Score: 2 11/25/19 25 10:53 AM CDT documented as of this encounter Care Teams Parking Inspector Relationship Specialty Start Date End Date Lydia Cleaning DO [address] [place] [address] PCP - General Family Practice 04/23/10 documented as of this encounter
--- OUTSIDE RECORDS SUMMARY | 2025-07-01 08:27 | XMS_ITS | Encounter Summary ---
Author Organization [facility] Address [address] [place] [address] Care Team Providers Care Parts Control Clerk Name Role Phone BlackLydia burden Mook EATON Primary Care Provider [phone] Encounter Details Date Type Department Care Team (Latest Contact Info) Description 11/27/2005 Outpatient Historical [facility] Imaging Services [address] [place] [address] Merrick Royal Jr., MD NO ADDRESS ON FILE Hypercalcemia (Primary Dx) Social History Tobacco Use Types Packs/Day Years Used Date Smoking Tobacco: Never Assessed Comments Unknown Sex and Gender Information Value Date Recorded Sex Assigned at Not on file 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 Gender Identity Not on file Sexual Orientation Not on file documented as of this encounter Plan of Treatment Not on file documented as of this encounter Procedures Procedure Name Priority Date/Time Associated Diagnosis Comments POC CREATININE Routine 11/27/2005 12:41 PM CDT NM BONE SCAN WHOLE BODY Routine 11/27/2005 12:[address] CHEST ABDOMEN W CONTRAST Routine 11/27/2005 12:01 AM CDT documented in this encounter Results * POC CREATININE (11/27/2005 12:41 PM CDT) CREATININE POC 1.1 0.7 - 1.2 mg/dL INTERFACE SYSTEM 11/27/2005 12:4 1 PM CDT us Merrick Royal Jr., MD POINT OF CARE TESTING Final Result INTERFACE SYSTEM Refer to clinic/hospital department * NM BONE SCAN WHOLE BODY (11/27/2005 12:01 AM CDT) Anatomical Region Laterality Modality Other 11/27/2005 12:0 1 AM CDT Narrative 04/26/2009 7:50 AM CDT 11/27/2005 Radiopharmaceutical: Tc-99m HDP ([id number]) Dose: 18.9 mCi Reason for Consultation: Hypercalcemia. Evaluation for bony abnormalities. BONE IMAGING, WHOLE BODY: Total-body bone images were obtained in the anterior and posterior projections. Evaluation of the spine reveals it to be relatively straight. There is a mild to moderate generalized irregularity in tracer distribution throughout the spine. Tracer activity is very mildly focally increased along the right side of L3 and the left side of L5. The ribs are all generally within normal limits. Tracer activity appears symmetric and physiologic throughout the pelvis. The long bones of both upper and lower extremities, both scapulae, clavicles, sternum, and calvarium all appear unremarkable. Some increased tracer activity is noted in both knees, particularly in both medial tibial plateaus. IMPRESSION: Degenerative changes are noted throughout the spine. The more focal abnormalities described in the lumbar spine most likely represent areas of more severe degenerative and/or hypertrophic change. The L3 abnormality may be secondary to facet joint arthritis. The L5 abnormality is slightly more worrisome, as there is a slight possibility that this could represent an infiltrative lesion, although I doubt that this is the case. Degenerative changes are noted in both knees. vladimir Dictated By: Vicente Sommers M.D. Electronically Signed By: Vicente Sommers M.D. Date Signed: 11/27/05 JAW Procedure Note Provider, Historical - 06/20/2009 11/27/2005 Radiopharmaceutical: Tc-99m HDP ([id number]) Dose: 18.9 mCi Reason for Consultation: Hypercalcemia. Evaluation for bony abnormalities. BONE IMAGING, WHOLE BODY: Total-body bone images were obtained in the anterior and posteriorprojections. Evaluation of the spine reveals it to be relatively straight. There is amild to moderate generalized irregularity in tracer distribution throughout the spine. Tracer activityis very mildly focally increased along the right side of L3 and the left side of L5. The ribsare all generally within normal limits. Tracer activity appears symmetric and physiologic throughout thepelvis. The long bones of both upper and lower extremities, both scapulae, clavicles, sternum, andcalvarium all appear unremarkable. Some increased tracer activity is noted in both knees, particularly inboth medial tibial plateaus. IMPRESSION: Degenerative changes are noted throughout the spine. The more focalabnormalities described in the lumbar spine most likely represent areas of more severe degenerativeand/or hypertrophic change. The L3 abnormality may be secondary to facet joint arthritis. The L5 abnormalityis slightly more worrisome, as there is a slight possibility that this could represent an infiltrativelesion, although I doubt that this is the case. Degenerative changes are noted in both knees. jaw Dictated By: Vicente Sommers M.D. Electronically Signed By: Vicente Sommers M.D. Date Signed: 11/27/05 JAW us Merrick Royal Jr., MD [place] ORDERABLES Final Resul t * CT CHEST ABDOMEN W CONTRAST (11/27/2005 12:01 AM CDT) Anatomical Region Laterality Modality Chest Other 11/27/2005 12:0 1 AM CDT Narrative 04/26/2009 7:50 AM CDT CHEST / ABDOMEN CT WITH CONTRAST: DATE OF EXAMINATION: 11/27/2005. HISTORY: Hypercalcemia. TECHNIQUE: Axial tomograms obtained through the chest / abdomen following administration of IV and oral contrast. FINDINGS: Calcified granulomatous residuals. No axillary, mediastinal, or hilar lymphadenopathy by size criteria. No pleural effusion or pericardial thickening. Hepatomegaly with diffuse fatty infiltration of the liver. Nonspecific mild multinodularity of the left adrenal gland. Remainder of solid upper intra-abdominal organs and gallbladder unremarkable. No visualized abdominal lymphadenopathy or free fluid. Few scattered colonic diverticula without apparent accompanying inflammatory change. Nodular sclerotic lesion of the vertebral body of L2. Extensive degenerative change of the remainder of visualized spine. IMPRESSION: Calcified granulomatous residuals. Hepatomegaly with fatty infiltration of the liver. Nonspecific mild nodularity of the left adrenal gland. Sclerotic lesion of the vertebral body of L2 indeterminate for degenerative change versus more significant lesion such as skeletal metastases. Further correlation with nuclear bone scan may be of benefit as clinically warranted. sdm Dictated By: Marina Faith M.D. Electronically Signed By: Marina Faith M.D. Date Signed: 11/28/05 SDM Procedure Note Provider, Historical - 06/20/2009 CHEST / ABDOMEN CT WITH CONTRAST: DATE OF EXAMINATION: 11/27/2005. HISTORY: Hypercalcemia. TECHNIQUE: Axial tomograms obtained through the chest / abdomen followingadministration of IV and oral contrast. FINDINGS: Calcified granulomatous residuals. No axillary, mediastinal, or hilarlymphadenopathy by size criteria. No pleural effusion or pericardial thickening. Hepatomegaly with diffuse fatty infiltration of the liver. Nonspecificmild multinodularity of the left adrenal gland. Remainder of solid upper intra-abdominal organs andgallbladder unremarkable. No visualized abdominal lymphadenopathy or free fluid. Few scattered colonicdiverticula without apparent accompanying inflammatory change. Nodular sclerotic lesion of thevertebral body of L2. Extensive degenerative change of the remainder of visualized spine. IMPRESSION: Calcified granulomatous residuals. Hepatomegaly with fatty infiltrationof the liver. Nonspecific mild nodularity of the left adrenal gland. Sclerotic lesion of the vertebralbody of L2 indeterminate for degenerative change versus more significant lesion such as skeletalmetastases. Further correlation with nuclear bone scan may be of benefit as clinically warranted. sdm Dictated By: Marina Faith M.D. Electronically Signed By: Marina Faith M.D. Date Signed: 11/28/05 SDM us Merrick Royal Jr., MD CT ORDERABLES Final Resul t documented in this encounter Visit Diagnoses Diagnosis Hypercalcemia- Primary documented in this encounter Care Teams Parts Control Clerk Relationship Specialty Start Date End Date Lydia Cleaning DO [address] [place] [address] PCP - General Family Practice 04/23/10 documented as of this encounter
--- OUTSIDE RECORDS SUMMARY | 2025-07-01 08:27 | XMS_ITS | Encounter Summary ---
Author Organization [facility] Address [address] [place] [address] Care Team Providers Care Rat Breeder Name Role Phone Lydia Cleaning DO Primary Care Provider [phone] Reason for Visit * Reason Comments Medication Refill Encounter Details Date Type Department Care Team (Late st Contact Info) Description 02/15/2025 Telephone [facility] Medicine [place] [address] [place] [phone] Lydia Cleaning DO [address] [place] [address] Medication Refill Social History Tobacco Use Types Packs/Day Years Used Date Smoking Tobacco: Never Passive Smoke Exposure: Never Smokeless Tobacco: Never Alcohol Use Standard Drinks/Week Comments No 0 (1 standard drink = 0.6 oz pur e alcohol) Comments No Sex and Gender Information Value Date Recorded Sex Assigned at Not on file 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 * Telephone Encounter - Jolynn Ramos CMA - 02/16/2025 1:55 PM CDT Called Sybil, daughter, and she stated that she called [employer] prescription coverage plan and they listed her as low income so the nebulized medications are much more cost effective--the most expensive is $30 to which is doable for them. * Telephone Encounter - Jolynn Ramos CMA - 02/16/2025 1:44 PM CDT Called Catherine with [facility]. Reviewed the messages we have received. She stated that she only see's the patient once a month and she called while she was with the patient but she statedthe patient did seem confused about her nebulized medications. Informed her that I will contact thepatients daughter to review further. She voiced her understanding and agreed with this plan. * Telephone Encounter - Lydia Cleaning DO - 02/15/2025 2:46 PM CDT I have filled out multiple forms to get her nebulizer meds from a [employer] company so that this way her medicare will cover these and they won't be so expensive. Why is she getting this at [facility]? * Telephone Encounter - Ly Covarrubias LPN - 02/15/2025 11:36 AM CDT 02/15/2025 11:36 AM I spoke with Beatrice to verify pharmacy. Pt is wanting to know if something can be substituted for the Yupelri and budesonide d/t cost and please send to [facility]. Ly POWER * Telephone Encounter - Ly Covarrubias LPN - 02/15/2025 11:34 AM CDT Medication Refill Request Last Fill Date:12/21/24 with 6 RF Recent and Future Visits: Recent Visits Date Type Provider Dept 01/16/25 Office Visit Queen, November, [facility] 11/24/24 Video Visit Queennovember, [facility] 11/08/24 Office Visit Lydia Cleaning DO [facility] Showing recent visits within past 540 days with a meds authorizing provider and meeting all other requirements Future Appointments No visits were found meeting these conditions. Showing future appointments within next 365 days with a meds authorizing provider and meeting all other requirements Last Labs: Lab Results Component Value Date/Time CREAT 1.03 (H) 11/08/2024 09:35 AM BUN 24 11/08/2024 09:35 AM NA 143 11/08/2024 09:35 AM K 4.6 11/08/2024 09:35 AM CL 105 11/08/2024 09:35 AM CO2 29 11/08/2024 09:35 AM GFR 52 (L) 11/08/2024 09:35 AM Yelitza Pisano - 1935 Check and review of the [place] PDMP performed on 02/15/2025 at 11:34 AM was * Telephone Encounter - JulianRoger herbert Mere - 02/15/2025 11:21 AM CDT Copied from [facility] #[id number]. Topic: Medication Request >> Feb 15, 2025 11:19 AM Roger Washington wrote: Caller Name: Catherine from [facility] Callback Number: [phone] Medication (Ask patient/caregiver to spell if possible): revefenacin (Yupelri) 175 mcg/3 mL Solution for Nebulization udesonide 1 mg/2 mL Suspension for Nebulization Note: All medication prescriptions can be requested using one [facility] Preferred Pharmacy: [facility], [place] - [address] [place] [address] [address] Call Notes:Patient is needing a refill Did caller contact the correct clinic for prescribing provider? Yes Ask caller if the refill is for a controlled medication. Is this for a controlled Medication? Unsure Is there an encounter open? No documented in this encounter Plan of Treatment Not on file documented as of this encounter Visit Diagnoses Diagnosis Chronic obstructive pulmonary disease, unspecified COPD type (CMS/HCC) documented in this encounter Additional Health Concerns Assessment Noted Time PHQ-9 Depression Total Score: 2 11/25/19 25 10:53 AM CDT documented as of this encounter Care Teams Rat Breeder Relationship Specialty Start Date End Date Lydia Cleaning DO [address] [place] [address] PCP - General Family Practice 04/23/10 documented as of this encounter
--- OUTSIDE RECORDS SUMMARY | 2025-07-01 08:27 | XMS_ITS | Encounter Summary ---
Author Organization [facility] Address [address] [place] [address] Care Team Providers Care Charcoal Unloader Name Role Phone Lydia Cleaning DO Primary Care Provider [phone] Encounter Details Date Type Department Care Team (Latest Contact Info) Description 11/21/2005 Outpatient Historical [facility] Family Medicine- [place] [address] [place] [address] Mike Hardy, LINEN SORTER [address] [place] [address] Allergy, Unspecified not Elsewhere Classified (Primary Dx) Social History Tobacco Use Types Packs/Day Years Used Date Smoking Tobacco: Never Assessed Comments Unknown Sex and Gender Information Value Date Recorded Sex Assigned at Not on file 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
--- OUTSIDE RECORDS SUMMARY | 2025-07-01 08:27 | XMS_ITS | Encounter Summary ---
Author Organization [facility] Address [address] [place] [address] Care Team Providers Care Applied Statistician Name Role Phone Lydia Cleaning DO Primary Care Provider [phone] Encounter Details Date Type Department Care Team (Latest Contact Info) Description 11/22/2004 Outpatient Historical [facility] Medicine- [place] [address] [place] [address] Waqar Hough MD [address] [place] [phone] GENERALIZED HYPERHIDROSIS (Primary Dx) Social History Tobacco Use Types Packs/Day Years Used Date Smoking Tobacco: Never Assessed Comments Unknown Sex and Gender Information Value Date Recorded Sex Assigned at Not on file 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 Gender Identity Not on file Sexual Orientation Not on file documented as of this encounter Plan of Treatment Not on file documented as of this encounter Procedures Procedure Name Priority Date/Time Associated Diagnosis Comments TSH Routine 11/22/2004 8:15 AM CDT T4 FREE Routine 11/22/2004 8:15 AM CDT FSH Routine 11/22/2004 8:15 AM CDT LIPID PANEL Routine 11/22/2004 8:15 AM CDT COMPREHENSIVE METABOLIC PANEL Routine 11/22/2004 8:15 AM CDT documented in this encounter Results * FSH (11/22/2004 8:15 AM CDT) FSH 39.0 mlU/ML INTERFACE SYSTEM Comment: FSH Expected Ranges: Normally Menstruating Females Follicular Phase 4-13 mIU/ml Mid-Cycle 5-22 mIU/ml Luteal Phase 2-13 mIU/ml Postmenopausal females 20-138 mIU/ml Males 1-8 mIU/ml 11/22/2004 8:15 AM CDT Waqar Hough MD CHEMISTRY ORDERABLES Final Res ult Performing Organization Address City/[facility] Phone Number INTERFACE SYSTEM Refer to clinic/hospital department * T4 FREE (11/22/2004 8:15 AM CDT) T4 FREE 0.82 0.71 - 1.85 ng/dL INTERFACE SYSTEM 11/22/2004 8:15 AM CDT Waqar Hough MD CHEMISTRY ORDERABLES Final Res ult Performing Organization Address City/[facility] Co de Phone Number INTERFACE SYSTEM Refer to clinic/hospital department * TSH (11/22/2004 8:15 AM CDT) TSH 2.07 0.49 - 4.67 uIU/ml INTERFACE SYSTEM 11/22/2004 8:15 AM CDT Waqar Hough MD CHEMISTRY ORDERABLES Final Res ult Performing Organization Address [facility] de Phone Number INTERFACE SYSTEM Refer to clinic/hospital department * (ABNORMAL) LIPID PANEL (11/22/2004 8:15 AM CDT) CHOLESTEROL 165 75 - 200 mg/dL INTERFACE SYSTEM TRIGLYCERIDE 63 0 - 200 mg/dL INTERFACE SYSTEM CALCULATED TOTAL CHOLESTEROL TO HDL RATIO 2.20(L) 3.27 - 4.44 INTERFACE SYSTEM HDL 75(H) 40 - 60 mg/dL INTERFACE SYSTEM LDL CALCULATED 77 0 - 130 mg/dL INTERFACE SYSTEM 11/22/2004 8:15 AM CDT us Waqar Hough MD CHEMISTRY ORDERABLES Final Res ult Performing Organization Address [facility] de Phone Number INTERFACE SYSTEM Refer to clinic/hospital department * (ABNORMAL) COMPREHENSIVE METABOLIC PANEL (11/22/2004 8:15 AM CDT) GLUCOSE 88 70 - 110 mg/dL INTERFACE SYSTEM BUN 28(H) 7 - 17 mg/dL INTERFACE SYSTEM CREATININE 1.1 0.7 - 1.2 mg/dL INTERFACE SYSTEM SODIUM 145 136 - 145 mEq/L INTERFACE SYSTEM POTASSIUM 5.1(H) 3.5 - 5.0 mEq/L INTERFACE SYSTEM CO2 26 22 - 32 mmol/l INTERFACE SYSTEM CHLORIDE 107 95 - 110 mEq/L INTERFACE SYSTEM CALCIUM 10.0 8.4 - 10.5 mg/dL INTERFACE SYSTEM ALKALINE PHOSPHATASE 56 38 - 126 IU/L INTERFACE SYSTEM TOTAL PROTEIN 7.4 6.3 - 8.2 g/dL INTERFACE SYSTEM ALBUMIN 4.2 3.5 - 5.0 g/dL INTERFACE SYSTEM AST 34 14 - 36 IU/L INTERFACE SYSTEM ALT 48 9 - 52 IU/L INTERFACE SYSTEM BILIRUBIN TOTAL 0.6 0.2 - 1.4 mg/dL INTERFACE SYSTEM GLOBULIN (CALC) 3.2 2.4 - 3.9 g/dL INTERFACE SYSTEM ANION GAP 17 9 - 20 mEq/L INTERFACE SYSTEM ALBUMIN/GLOBULIN RATIO 1.3 1.0 - 2.3 INTERFACE SYSTEM OSMOLALITY, CALCULATED 304(H) 275 - 295 mOsm/Kg INTERFACE SYSTEM 11/22/2004 8:15 AM CDT us Waqar Hough MD CHEMISTRY ORDERABLES Final Res ult Performing Organization Address [facility] Co de Phone Number INTERFACE SYSTEM Refer to clinic/hospital department documented in this encounter Visit Diagnoses Diagnosis Generalized hyperhidrosis- Primary documented in this encounter Care Teams Applied Statistician Relationship Specialty Start Date End Date Lydia Cleaning DO [address] [place] [address] PCP - General Family Practice 04/23/10 documented as of this encounter
--- OUTSIDE RECORDS SUMMARY | 2025-07-01 08:27 | XMS_ITS | Encounter Summary ---
Author Organization [facility] Address [address] [place] [address] Care Team Providers Care Shop Blacksmith Name Role Phone Lydia Cleaning DO Primary Care Provider Encounter Details Date Type Department Care Team (Latest Contact Info) Description 03/09/1998 Outpatient Historical [facility] Urology- [address] [place] [address] Hematuria (Primary Dx) Social History Tobacco Use Types Packs/Day Years Used Date Smoking Tobacco: Never Assessed Comments Unknown Sex and Gender Information Value Date Recorded Sex Assigned at Not on file 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
--- OUTSIDE RECORDS SUMMARY | 2025-07-01 08:27 | XMS_ITS | Encounter Summary ---
Author Organization [facility] Address [address] [place] [address] Care Team Providers Care Security Sme Name Role Phone Lydia Cleaning DO Primary Care Provider [phone] Reason for Visit * Reason Comments Needs Orders Written Encounter Details Date Type Department Care Team (Late st Contact Info) Description 03/15/2025 Telephone [facility] Medicine [place] [address] [place] [phone] Lydia Cleaning DO [address] [place] [address] Needs Orders Written Social History Tobacco Use Types Packs/Day Years Used Date Smoking Tobacco: Never Passive Smoke Exposure: Never Smokeless Tobacco: Never Alcohol Use Standard Drinks/Week Comments No 0 (1 standard drink = 0.6 oz pur e alcohol) Comments No Sex and Gender Information Value Date Recorded Sex Assigned at Not on file 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 Topic: CPA Information Request - Order or Referral Request >> Mar 15, 2025 10:37 AM James Porter wrote: Caller Name: Sybil- daughter Patient/Caregiver Callback Number: [phone] Call Notes: wanting to speak with Justine about the sleep study and equipment. States she has been waiting over a month documented in this encounter Plan of Treatment Not on file documented as of this encounter Visit Diagnoses Not on filedocumented in this encounter Additional Health Concerns Assessment Noted Time PHQ-9 Depression Total Score: 2 11/25/19 10:53 AM CDT documented as of this encounter Care Teams Security Sme Relationship Specialty Start Date End Date Lydia Cleaning DO [address] [place] [address] PCP - General Family Practice 04/23/10 documented as of this encounter
--- OUTSIDE RECORDS SUMMARY | 2025-07-01 08:28 | XMS_ITS | Encounter Summary ---
Author Organization [facility] Address [address] [place] [address] Care Team Providers Care Life Sciences Instructor Name Role Phone Lydia Cleaning DO Primary Care Provider Encounter Details Date Type Department Care Team (Latest Contact Info) Description 03/04/2007 Outpatient Historical [facility] Medicine [address] [phone] Mike Hardy, POISON INFORMATION SPECIALIST [address] [place] [address] Pain in Joint, Lower Leg (Primary Dx) Social History Tobacco Use Types Packs/Day Years Used Date Smoking Tobacco: Never Assessed Comments Unknown Sex and Gender Information Value Date Recorded Sex Assigned at Not on file Legal Sex Female 3:49 AM ENROLLMENT SPECIALIST Gender Identity Not on file Sexual Orientation Not on file documented as of this encounter Plan of Treatment Not on file documented as of this encounter Visit Diagnoses Diagnosis Pain in joint, lower leg- Primary documented in this encounter Care Teams Life Sciences Instructor Relationship Specialty Start Date End Date Lydia Cleaning DO [address] [place] [phone] PCP - General Family Practice 04/23/10 documented as of this encounter
--- OUTSIDE RECORDS SUMMARY | 2025-07-01 08:28 | XMS_ITS | Encounter Summary ---
Author Organization [facility] Address [address] [place] [address] Care Team Providers Care Tire Wrapper Name Role Phone Lydia Cleaning DO Primary Care Provider [phone] Encounter Details Date Type Department Care Team (Late st Contact Info) Description 05/09/2006 Outpatient Historical [facility] [address] [place] [phone] Merrick Royal Jr., MD NO ADDRESS ON FILE Social History Tobacco Use Types Packs/Day Years Used Date Smoking Tobacco: Never Assessed Comments Unknown Sex and Gender Information Value Date Recorded Sex Assigned at Not on file 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
--- OUTSIDE RECORDS SUMMARY | 2025-07-01 08:28 | XMS_ITS | Encounter Summary ---
Author Organization [facility] Address [address] [place] [address] Care Team Providers Care Spar Cap Beveler Name Role Phone Lydia Cleaning DO Primary Care Provider Encounter Details Date Type Department Care Team (Latest Contact Info) Description 01/06/2007 Outpatient Historical [facility] [place] [place] [address] [place] [phone] Eleni Nails MD [address] [place] [phone] Asymptomatic Postmenopausal Status (Age-Related) (Natural) (Primary Dx); Disorder of Bone and Cartilage, Unspecified Social History Tobacco Use Types Packs/Day Years Used Date Smoking Tobacco: Never Assessed Comments Unknown Sex and Gender Information Value Date Recorded Sex Assigned at Not on file Legal Sex Female 3:49 AM HOSPICE NURSE PRACTITIONER Gender Identity Not on file Sexual Orientation Not on file documented as of this encounter Plan of Treatment Not on file documented as of this encounter Visit Diagnoses Diagnosis Asymptomatic postmenopausal status (age-related) (natural)- Primary Disorder of bone and cartilage, unspecified documented in this encounter Care Teams Spar Cap Beveler Relationship Specialty Start Date End Date Lydia Cleaning DO [address] [place] [address] PCP - General Family Practice 04/23/10 documented as of this encounter
--- OUTSIDE RECORDS SUMMARY | 2025-07-01 08:28 | XMS_ITS | Encounter Summary ---
Author Organization [facility] Address [address] [place] [address] Care Team Providers Care Handcrew Foreman Name Role Phone Lydia Cleaning DO Primary Care Provider [phone] Encounter Details Date Type Department Care Team (Latest Contact Info) Description 05/07/2007 Outpatient Historical [facility] [address] [phone] Mike Hardy, SUPERVISOR FACEPIECE LINE [address] [place] [address] Vaccine for Influenza (Primary Dx) Social History Tobacco Use Types Packs/Day Years Used Date Smoking Tobacco: Never Assessed Comments Unknown Sex and Gender Information Value Date Recorded Sex Assigned at Not on file Legal Sex Female 3:49 AM BOX PERSON Gender Identity Not on file Sexual Orientation Not on file documented as of this encounter Plan of Treatment Not on file documented as of this encounter Visit Diagnoses Diagnosis Vaccine for influenza- Primary Need for prophylactic vaccination and inoculation against influenza documented in this encounter Care Teams Handcrew Foreman Relationship Specialty Start Date End Date Lydia Cleaning DO [address] [place] [phone] PCP - General Family Practice 04/23/10 documented as of this encounter
--- OUTSIDE RECORDS SUMMARY | 2025-07-01 08:28 | XMS_ITS | Encounter Summary ---
Author Organization [facility] Address [address] [place] [address] Care Team Providers Care Plant Technician/Control Room Operator Name Role Phone Lydia Cleaning DO Primary Care Provider Encounter Details Date Type Department Care Team (Latest Contact Info) Description 11/18/2006 Outpatient Historical [facility] [address] [phone] Mike Hardy, LYE TREATER [address] [place] [address] Pneumonia, Organism Unspecified (Primary Dx) Social History Tobacco Use Types Packs/Day Years Used Date Smoking Tobacco: Never Assessed Comments Unknown Sex and Gender Information Value Date Recorded Sex Assigned at Not on file Legal Sex Female 3:49 AM DISPLAY CARVER Gender Identity Not on file Sexual Orientation Not on file documented as of this encounter Plan of Treatment Not on file documented as of this encounter Visit Diagnoses Diagnosis Pneumonia, organism unspecified(486)- Primary Pneumonia, organism unspecified documented in this encounter Care Teams Plant Technician/Control Room Operator Relationship Specialty Start Date End Date Lydia Cleaning DO [address] [place] [address] PCP - General Family Practice 04/23/10 documented as of this encounter
--- OUTSIDE RECORDS SUMMARY | 2025-07-01 08:28 | XMS_ITS | Encounter Summary ---
Author Organization [facility] Address [address] [place] [address] Care Team Providers Care Assessor Name Role Phone Lydia Cleaning DO Primary Care Provider Encounter Details Date Type Department Care Team (Latest Contact Info) Description 03/14/2005 Outpatient Historical [facility]- [place] [address] [place] [facility] [place] [address] Waqar Hough MD [address] [place] [phone] ASTHMA UNSPECIFIED (Primary Dx) Social History Tobacco Use Types Packs/Day Years Used Date Smoking Tobacco: Never Assessed Comments Unknown Sex and Gender Information Value Date Recorded Sex Assigned at Not on file Legal Sex Female 3:49 AM YACHT RIGGER Gender Identity Not on file Sexual Orientation Not on file documented as of this encounter Plan of Treatment Not on file documented as of this encounter Visit Diagnoses Diagnosis Unspecified asthma(493.90)- Primary Unspecified asthma documented in this encounter Care Teams Assessor Relationship Specialty Start Date End Date Lydia Cleaning DO [address] [facility] [place] [address] PCP - General Family Practice 04/23/10 documented as of this encounter
--- OUTSIDE RECORDS SUMMARY | 2025-07-01 08:28 | XMS_ITS | Encounter Summary ---
Author Organization [facility] Address [address] [place] [address] Care Team Providers Care Mock Up Assembler Name Role Phone Lydia Cleaning DO Primary Care Provider Encounter Details Date Type Department Care Team (Latest Contact Info) Description 01/07/2006 Outpatient Historical [facility]- [place] [address] [place] [address] Mike Hardy, VENEER GLUE JOINTER FEEDBACK [address] [place] [address] Acute Pharyngitis (Primary Dx) Social History Tobacco Use Types Packs/Day Years Used Date Smoking Tobacco: Never Assessed Comments Unknown Sex and Gender Information Value Date Recorded Sex Assigned at Not on file Legal Sex Female 3:49 AM LEAD FABRICATOR Gender Identity Not on file Sexual Orientation Not on file documented as of this encounter Plan of Treatment Not on file documented as of this encounter Visit Diagnoses Diagnosis Acute pharyngitis- Primary documented in this encounter Care Teams Mock Up Assembler Relationship Specialty Start Date End Date Lydia Cleaning DO [address] [place] [address] PCP - General Family Practice 04/23/10 documented as of this encounter
--- OUTSIDE RECORDS SUMMARY | 2025-07-01 08:28 | XMS_ITS | Encounter Summary ---
Author Organization [facility] Address [address] [place] [address] Care Team Providers Care Dehydration Plant Operator Name Role Phone Lydia Cleaning DO Primary Care Provider [phone] Encounter Details Date Type Department Care Team (Late st Contact Info) Description 08/18/2007 Outpatient Historical [facility] Medicine [address] [phone] Mike Hardy, CHIQUI [address] [place] [address] Social History Tobacco Use Types Packs/Day Years Used Date Smoking Tobacco: Never Assessed Comments Unknown Sex and Gender Information Value Date Recorded Sex Assigned at Not on file 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 Nurses documentation noted. Review of systems, social history and chart review performed on health questionnaire. OBJECTIVE: HEENT: Head is normocephalic. She has no nystagmus. Her pupils are equal and reactive to light. TMsare clear and lucent bilaterally. Nasal passages are patent. Intraoral exam is pink and moist. Posterior oropharynx is within normal limits. NECK: Supple. Thyroid is not palpated. No cervical lymphadenopathy is noted. HEART: Regular rate and rhythm with no murmur. LUNGS: Do show some wheezing in the upper lobes. Pulse oximetry was 98%. ABDOMEN: Soft, rounded and nontender to palpation. Bowel sounds are present. EXTREMITIES: Without defect. NEUROLOGICAL: Cranial nerves II through XII appear grossly intact. ASSESSMENT: Asthma. PLAN: I really do not have a whole lot other to give her. She is on most of the medications for asthma and COPD that we can put her on. We have attempted to set her up with the animal maintenance supervisor, she canceled the appointment. We attempted to set her up with a pool technician and she canceled that appointment. She does not want to go to [place]. She really does not want to go to [place]. She does not want to go any further than [place], actually. She feels just too tired to go any further. She does go and see Dr. Royal for her diabetes in [place] every 6 months. Kenalog 20 mg IM and see how she does with that. We are also going to put her on an antibiotic at this point. She states she has had some yellow sputum and that she goes right into pneumonia very quickly. So we will go ahead and put her on Ceftin 500 mg one b.i.d. If she has any problems at all, she is to call the office or the emergency room. Mike Hardy RN, SOAPING DEPARTMENT SUPERVISOR Eleni Nails M.D. [facility] Electronically Signed by Mike Hardy RN 09/01/2007 14:32 , 8:29 A P, 615 Document #: [id number] cc: O MECHANIC HELPER documented in this encounter Plan of Treatment Not on file documented as of this encounter Visit Diagnoses Not on filedocumented in this encounter Care Teams Dehydration Plant Operator Relationship Specialty Start Date End Date Lydia Cleaning DO [address] [place] [address] PCP - General Family Practice 04/23/10 documented as of this encounter
--- OUTSIDE RECORDS SUMMARY | 2025-07-01 08:28 | XMS_ITS | Encounter Summary ---
Author Organization [facility] Address [address] [place] [address] Care Team Providers Care Executive Vice President And Chief Financial Officer Name Role Phone Lydia Cleaning DO Primary Care Provider Encounter Details Date Type Department Care Team (Latest Contact Info) Description 11/22/2004 Outpatient Historical [facility] Medicine- [place] [address] [place] [facility] [place] [address] Waqar Hough MD [address] [place] [phone] Pure hypercholesterolem (Primary Dx) Social History Tobacco Use Types Packs/Day Years Used Date Smoking Tobacco: Never Assessed Comments Unknown Sex and Gender Information Value Date Recorded Sex Assigned at Not on file 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
--- OUTSIDE RECORDS SUMMARY | 2025-07-01 08:28 | XMS_ITS | Encounter Summary ---
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
--- OUTSIDE RECORDS SUMMARY | 2025-07-01 08:28 | XMS_ITS | Encounter Summary ---
Author Organization [facility] Address [address] [place] [address] Care Team Providers Care Construction Representative Name Role Phone Lydia Cleaning DO Primary Care Provider [phone] Encounter Details Date Type Department Care Team (Latest Contact Info) Description 10/22/2006 Outpatient Historical [facility] Medicine [address] [phone] Eleni Nails MD [address] [place] [phone] Unspecified Asthma (Primary Dx); DM w/o Complication Type II (CMS/HCC); Unspecified Essential Hypertension Social History Tobacco Use Types Packs/Day Years Used Date Smoking Tobacco: Never Assessed Comments Unknown Sex and Gender Information Value Date Recorded Sex Assigned at Not on file Legal Sex Female 3:49 AM SMALL ENGINE SPECIALIST Gender Identity Not on file Sexual Orientation Not on file documented as of this encounter Plan of Treatment Not on file documented as of this encounter Visit Diagnoses Diagnosis Unspecified asthma(493.90)- Primary Unspecified asthma Type II or unspecified type diabetes mellitus without mention of complication, not stated as uncontrolled Unspecified essential hypertension documented in this encounter Care Teams Construction Representative Relationship Specialty Start Date End Date Lydia Cleaning DO [address] [place] [address] PCP - General Family Practice 04/23/10 documented as of this encounter
--- OUTSIDE RECORDS SUMMARY | 2025-07-01 08:28 | XMS_ITS | Encounter Summary ---
Author Organization [facility] Address [address] [place] [address] Care Team Providers Care Patient Care Associate Name Role Phone Lydia Cleaning DO Primary Care Provider [phone] Encounter Details Date Type Department Care Team (Latest Contact Info) Description 04/15/2005 Outpatient Historical [facility] Medicine- [place] [address] [facility] [place] [address] Waqar Hough MD [address] [place] [phone] UNSPECIFIED VIRAL INFECTION (Primary Dx) Social History Tobacco Use Types Packs/Day Years Used Date Smoking Tobacco: Never Assessed Comments Unknown Sex and Gender Information Value Date Recorded Sex Assigned at Not on file Legal Sex Female 3:49 AM KITCHEN LEAD Gender Identity Not on file Sexual Orientation Not on file documented as of this encounter Plan of Treatment Not on file documented as of this encounter Visit Diagnoses Diagnosis Unspecified viral infection, in conditions classified elsewhere and of unspecified site- Primary documented in this encounter Care Teams Patient Care Associate Relationship Specialty Start Date End Date Lydia Cleaning DO [address] [place] [address] PCP - General Family Practice 04/23/10 documented as of this encounter
--- OUTSIDE RECORDS SUMMARY | 2025-07-01 08:28 | XMS_ITS | Encounter Summary ---
Author Organization [facility] Address [address] [place] [address] Care Team Providers Care Cafe Assistant Name Role Phone Lydia Cleaning DO Primary Care Provider [phone] Encounter Details Date Type Department Care Team (Latest Contact Info) Description 04/03/2006 Outpatient Historical [facility] Family Medicine- [place] [address] [facility] [address] Moe Glynn MD NO ADDRESS ON FILE Acute Pharyngitis (Primary Dx) Social History Tobacco Use Types Packs/Day Years Used Date Smoking Tobacco: Never Assessed Comments Unknown Sex and Gender Information Value Date Recorded Sex Assigned at Not on file Legal Sex Female 3:49 AM MUTUAL FUND ANALYST Gender Identity Not on file Sexual Orientation Not on file documented as of this encounter Plan of Treatment Not on file documented as of this encounter Visit Diagnoses Diagnosis Acute pharyngitis- Primary documented in this encounter Care Teams Cafe Assistant Relationship Specialty Start Date End Date Lydia Cleaning DO [address] [facility] [place] [address] PCP - General Family Practice 04/23/10 documented as of this encounter
--- OUTSIDE RECORDS SUMMARY | 2025-07-01 08:28 | XMS_ITS | Encounter Summary ---
Author Organization [facility] Address [address] [place] [facility] [place] [address] Care Team Providers Care Director Of Web Marketing Name Role Phone Lydia Cleaning DO Primary Care Provider Encounter Details Date Type Department Care Team (Latest Contact Info) Description 04/08/2006 Outpatient Historical [facility] [address] [place] [phone] Merrick Royal Jr., MD NO ADDRESS ON FILE DM w/o Complication Type II, Uncontrolled (Primary Dx) Social History Tobacco Use Types Packs/Day Years Used Date Smoking Tobacco: Never Assessed Comments Unknown Sex and Gender Information Value Date Recorded Sex Assigned at Not on file Legal Sex Female 3:49 AM IUSS ACOUSTIC ANALYST Gender Identity Not on file Sexual Orientation Not on file documented as of this encounter Plan of Treatment Not on file documented as of this encounter Visit Diagnoses Diagnosis Type II or unspecified type diabetes mellitus without mention of complication, uncontrolled- Primary documented in this encounter Care Teams Director Of Web Marketing Relationship Specialty Start Date End Date Lydia Cleaning DO [address] [facility] [place] [address] PCP - General Family Practice 04/23/10 documented as of this encounter
--- OUTSIDE RECORDS SUMMARY | 2025-07-01 08:28 | XMS_ITS | Encounter Summary ---
Author Organization [facility] Address [address] [place] [address] Care Team Providers Care Personal Care Service Provider Name Role Phone Lydia Cleaning DO Primary Care Provider [phone] Encounter Details Date Type Department Care Team (Late st Contact Info) Description 06/09/2006 Outpatient Historical [facility] [address] [place] [phone] Merrick Royal Jr., MD NO ADDRESS ON FILE Social History Tobacco Use Types Packs/Day Years Used Date Smoking Tobacco: Never Assessed Comments Unknown Sex and Gender Information Value Date Recorded Sex Assigned at Not on file Legal Sex Female 3:49 AM PASTRY COOK APPRENTICE Gender Identity Not on file Sexual Orientation Not on file documented as of this encounter Plan of Treatment Not on file documented as of this encounter Visit Diagnoses Not on filedocumented in this encounter Care Teams Personal Care Service Provider Relationship Specialty Start Date End Date Lydia Cleaning DO [address] [facility] [place] [address] PCP - General Family Practice 04/23/10 documented as of this encounter
--- OUTSIDE RECORDS SUMMARY | 2025-07-01 08:28 | XMS_ITS | Encounter Summary ---
Author Organization [facility] Address [address] [place] [address] Care Team Providers Care Crm Consultant Name Role Phone Lydia Cleaning DO Primary Care Provider Encounter Details Date Type Department Care Team (Latest Contact Info) Description 03/11/[address] [facility] Family Medicine- [place] [address] [place] [facility] [place] [address] Moe Glynn MD NO ADDRESS ON FILE Osteoarth NOS-Unspec (Primary Dx) Social History Tobacco Use Types Packs/Day Years Used Date Smoking Tobacco: Never Assessed Comments Unknown Sex and Gender Information Value Date Recorded Sex Assigned at Not on file Legal Sex Female 3:49 AM YOUTH PASTOR Gender Identity Not on file Sexual Orientation Not on file documented as of this encounter Plan of Treatment Not on file documented as of this encounter Visit Diagnoses Diagnosis Osteoarthrosis, unspecified whether generalized or localized, unspecified site- Primary documented in this encounter Care Teams Crm Consultant Relationship Specialty Start Date End Date Lydia Cleaning DO [address] [place] [facility] [place] [phone] PCP - General Family Practice 04/23/10 documented as of this encounter
--- OUTSIDE RECORDS SUMMARY | 2025-07-01 08:28 | XMS_ITS | Encounter Summary ---
Author Organization [facility] Address [address] [place] [address] Care Team Providers Care Gastroenterology Nurse Name Role Phone Lydia Cleaning DO Primary Care Provider Encounter Details Date Type Department Care Team (Latest Contact Info) Description 06/25/2007 Outpatient Historical [facility] Medicine [address] [phone] Mike Hardy, HOUSEKEEPING DIRECTOR [address] [place] [address] DM w/o Complication Type II (CMS/HCC) (Primary Dx); Unspecified Asthma; Chronic Airway Obstruction, not Elsewhere Classified (CMS/HCC) Social History Tobacco Use Types Packs/Day Years Used Date Smoking Tobacco: Never Assessed Comments Unknown Sex and Gender Information Value Date Recorded Sex Assigned at Not on file 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 Sex Female 3:49 AM REGIONAL 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 Gender Identity Not on file Sexual Orientation Not on file documented as of this encounter Plan of Treatment Not on file documented as of this encounter Visit Diagnoses Diagnosis Type II or unspecified type diabetes mellitus without mention of complication, not stated as uncontrolled- Primary Unspecified asthma(493.90) Unspecified asthma Chronic airway obstruction, not elsewhere classified (CMS/HCC) Chronic airway obstruction, not elsewhere classified documented in this encounter Care Teams Gastroenterology Nurse Relationship Specialty Start Date End Date Lydia Cleaning DO [address] [place] [phone] PCP - General Family Practice 04/23/10 documented as of this encounter
--- OUTSIDE RECORDS SUMMARY | 2025-07-01 08:28 | XMS_ITS | Encounter Summary ---
Author Organization [facility] Address [address] [place] [address] Care Team Providers Care Van Driver Helper Name Role Phone Lydia Cleaning DO Primary Care Provider [phone] Encounter Details Date Type Department Care Team (Late st Contact Info) Description 08/27/2007 Outpatient Historical [facility] Medicine [address] [phone] Mike Hardy, CHIQUI [address] [place] [address] Social History Tobacco Use Types Packs/Day Years Used Date Smoking Tobacco: Never Assessed Comments Unknown Sex and Gender Information Value Date Recorded Sex Assigned at Not on file Legal Sex Female 3:49 AM VASCULAR NURSE Gender Identity Not on file Sexual Orientation Not on file documented as of this encounter Progress Notes * Mike Hardy NP - 08/27/2007 12:00 AM CST Patient Name: Yelitza Pisano DOS: 08/27/2007 : 1935 SUBJECTIVE: The patient presents for hives. Started around midnight last night. She has been on antibiotics for bronchitis. She still has the cough and productive yellow sputum. Still has chills. Nurses documentation noted. Review of systems, social history and chart review performed on health questionnaire. OBJECTIVE: HEENT: Head is normocephalic. TMs are clear and lucent bilaterally. Nasal passages are patent. Intraoral exam is pink and moist. Posterior oropharynx is within normal limits. NECK: Supple. Thyroid is not palpated. No cervical lymphadenopathy is noted. HEART: Regular rate and rhythm with no murmur. LUNGS: Lung sounds show wheezes throughout which do clear with an albuterol treatment per nebulizerhere in the office. SKIN: She does have hives to the abdomen. She does have swelling to the upper lip. ABDOMEN: Soft, rounded and nontender to palpation. Bowel sounds are present. EXTREMITIES: Without defect. ASSESSMENT: 1. Pneumonitis. 2. Bronchitis. 3. Allergic reaction to Ceftin. PLAN: 1. Increase clear fluids. 2. Kenalog 40 mg IM now. 3. Stop the Ceftin. 4. Add Biaxin 500 mg one twice daily times 10 days. 5. Followup as needed. Mike Hardy RN, GAS WORKER Eleni Nails M.D. [facility] Electronically Signed by Mike Hardy RN 09/27/2007 12:26 , 2:53 P P, 685 Document #: [id number] cc: ULAR NURSE ULAR NURSE documented in this encounter Plan of Treatment Not on file documented as of this encounter Visit Diagnoses Not on filedocumented in this encounter Care Teams Van Driver Helper Relationship Specialty Start Date End Date Lydia Cleaning DO [address] [place] [address] PCP - General Family Practice 04/23/10 documented as of this encounter
--- OUTSIDE RECORDS SUMMARY | 2025-07-01 08:28 | XMS_ITS | Encounter Summary ---
Author Organization [facility] Address [address] [place] [address] Care Team Providers Care Equipment Maint Tech Name Role Phone Lydia Cleaning DO Primary Care Provider Encounter Details Date Type Department Care Team (Latest Contact Info) Description 07/09/2006 Outpatient Historical [facility] Medicine- [place] [address] [place] [facility] [place] [phone] Moe Glynn MD NO ADDRESS ON FILE Unspecified Asthma (Primary Dx); Allergic Rhinitis, Cause Unspecified; Unspecified Pruritic Disorder Social History Tobacco Use Types Packs/Day Years Used Date Smoking Tobacco: Never Assessed Comments Unknown Sex and Gender Information Value Date Recorded Sex Assigned at Not on file Legal Sex Female 3:49 AM CELLULAR PLASTICS CUTTER Gender Identity Not on file Sexual Orientation Not on file documented as of this encounter Plan of Treatment Not on file documented as of this encounter Visit Diagnoses Diagnosis Unspecified asthma(493.90)- Primary Unspecified asthma Allergic rhinitis, cause unspecified Unspecified pruritic disorder documented in this encounter Care Teams Equipment Maint Tech Relationship Specialty Start Date End Date Lydia Cleaning DO [address] [place] [facility] [place] [address] PCP - General Family Practice 04/23/10 documented as of this encounter
--- OUTSIDE RECORDS SUMMARY | 2025-07-01 08:28 | XMS_ITS | Encounter Summary ---
Author Organization [facility] Address [address] [place] [address] Care Team Providers Care Grazing Aide Name Role Phone Lydia Cleaning DO Primary Care Provider Encounter Details Date Type Department Care Team (Latest Contact Info) Description 02/19/2006 Outpatient Historical [facility] Medicine- [place] [address] [facility] [place] [phone] Moe Glynn MD NO ADDRESS ON FILE Acute Pharyngitis (Primary Dx); Contact Dermatitis and Other Eczema, due to Unspecified Cause; Unspecified Peripheral Vascular Disease; Generalized Osteoarthrosis, Involving Multiple Sites Social History Tobacco Use Types Packs/Day Years Used Date Smoking Tobacco: Never Assessed Comments Unknown Sex and Gender Information Value Date Recorded Sex Assigned at Not on file Legal Sex Female 3:49 AM THERMAL MOLDER Gender Identity Not on file Sexual Orientation Not on file documented as of this encounter Plan of Treatment Not on file documented as of this encounter Visit Diagnoses Diagnosis Acute pharyngitis- Primary Contact dermatitis and other eczema, due to unspecified cause Peripheral vascular disease, unspecified Generalized osteoarthrosis, involving multiple sites documented in this encounter Care Teams Grazing Aide Relationship Specialty Start Date End Date Lydia Cleaning DO [address] [place] [address] PCP - General Family Practice 04/23/10 documented as of this encounter
--- OUTSIDE RECORDS SUMMARY | 2025-07-01 08:28 | XMS_ITS | Encounter Summary ---
Author Organization [facility] Address [address] [place] [address] Care Team Providers Care Tariff Clerk Name Role Phone Lydia Cleaning DO Primary Care Provider [phone] Encounter Details Date Type Department Care Team (Late st Contact Info) Description 09/01/2007 Outpatient Historical [facility] Medicine [address] [phone] Mike Hardy, CHIQUI [address] [place] [address] Social History Tobacco Use Types Packs/Day Years Used Date Smoking Tobacco: Never Assessed Comments Unknown Sex and Gender Information Value Date Recorded Sex Assigned at Not on file Legal Sex Female 3:49 AM RN ICU Gender Identity Not on file Sexual Orientation Not on file documented as of this encounter Progress Notes * Mike Hardy NP - 09/01/2007 12:00 AM CST Patient Name: Yelitza Pisano DOS: 09/01/2007 : 1935 VITALS: Weight: pounds. Pulse: . BP: /. SUBJECTIVE: Yelitza Pisano presents on 09/01/07 for followup of her hives. She still has some wheezing. Nurses documentation noted. Review of systems, social history and chart review performed on health questionnaire. OBJECTIVE: SKIN: No hives right now. HEENT: Head is normocephalic. TMs are clear and lucent bilaterally. Nasal passages are patent. Intraoral exam is pink and moist. Posterior oropharynx is within normal limits. NECK: Supple. Thyroid is not palpated. No cervical lymphadenopathy is noted. HEART: Regular rate and rhythm with no murmur. LUNGS: Clear to auscultation bilaterally. ABDOMEN: Soft, rounded and nontender to palpation. Bowel sounds are present. EXTREMITIES: Without defect. ASSESSMENT: 1. Asthma. 2. Allergies. PLAN: 1. Refer to an Silicator and a Rn Intern. 2. Give another 20 mg of Kenalog. 3. Will follow back up after she gets referred. 4. We have done everything we can here in the office as far as pulmonary medications and allergy medicines. She has multiple allergies. Mike Hardy RN, INCOME TAX ADMINISTRATOR Eleni Nails M.D. [facility] Electronically Signed by Mike Hardy RN 09/27/2007 12:26 , 5:25 P P, 685 Document #: [id number] cc: ICU ICU documented in this encounter Plan of Treatment Not on file documented as of this encounter Procedures Procedure Name Priority Date/Time Associated Diagnosis Comments IGE Routine 10/01/2007 12:18 PM RN ICU documented in this encounter Results * IGE (10/01/2007 12:18 PM RN ICU) IGE 41.0 <114.0 IU/mL SPECIALTY LAB IGE (NOTE) Note: Omalizumab (Xolair, Genentech; humanized IgG1 antihuman IgE Fc) treatment does not significantly interfere with the accuracy of total IgE on the ImmunoCAP (DirectPointe) platform. J Allergy Clin Immunol 2006;117:759-66). [facility]TY LAB 10/01/2007 12:1 8 PM RN ICU 10/01/2007 12:23 PM RN ICU Wally Isidro MD CHEMISTRY ORDERABLES Final Resu lt SPECIALTY LAB documented in this encounter Visit Diagnoses Not on filedocumented in this encounter Care Teams Tariff Clerk Relationship Specialty Start Date End Date Lydia Cleaning DO [address] [place] [address] PCP - General Family Practice 04/23/10 documented as of this encounter
--- OUTSIDE RECORDS SUMMARY | 2025-07-01 08:28 | XMS_ITS | Encounter Summary ---
Author Organization [facility] Address [address] [place] [address] Care Team Providers Care Electric Spot Welder Name Role Phone Lydia Cleaning DO Primary Care Provider Encounter Details Date Type Department Care Team (Late st Contact Info) Description 05/26/2007 Outpatient Historical [facility] Medicine [address] [phone] Social History Tobacco Use Types Packs/Day Years Used Date Smoking Tobacco: Never Assessed Comments Unknown Sex and Gender Information Value Date Recorded Sex Assigned at Not on file Legal Sex Female 3:49 AM EDUCATIONAL INSTITUTION CURATOR Gender Identity Not on file Sexual Orientation Not on file documented as of this encounter Plan of Treatment Not on file documented as of this encounter Visit Diagnoses Not on filedocumented in this encounter Care Teams Electric Spot Welder Relationship Specialty Start Date End Date Lydia Cleaning DO [address] [place] [address] PCP - General Family Practice 04/23/10 documented as of this encounter
--- OUTSIDE RECORDS SUMMARY | 2025-07-01 08:28 | XMS_ITS | Encounter Summary ---
Author Organization [facility] Address [address] [place] [address] Care Team Providers Care Banjo Repair Person Name Role Phone Lydia Cleaning DO Primary Care Provider [phone] Encounter Details Date Type Department Care Team (Latest Contact Info) Description 05/14/[address] 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
--- OUTSIDE RECORDS SUMMARY | 2025-07-01 08:28 | XMS_ITS | Encounter Summary ---
Author Organization [facility] Address [address] [place] [address] Care Team Providers Care Toys Inspector Name Role Phone Lydia Cleaning DO Primary Care Provider Encounter Details Date Type Department Care Team (Latest Contact Info) Description 06/11/2006 Outpatient Historical [facility] Family Medicine- [place] [address] [place] [address] oMe Glynn MD NO ADDRESS ON FILE Vaccine for influenza (Primary Dx) Social History [...] influenza documented in this encounter Care Teams Toys Inspector Relationship Specialty Start Date End Date Lydia Cleaning DO [address] [place] [phone] PCP - General Family Practice 04/23/10 documented as of this encounter
--- OUTSIDE RECORDS SUMMARY | 2025-07-01 08:28 | XMS_ITS | Encounter Summary ---
Author Organization [facility] Address [address] [place] [address] Care Team Providers Care Operator Cavity Pump Name Role Phone Lydia Cleaning DO Primary Care Provider Encounter Details Date Type Department Care Team (Latest Contact Info) Description 01/06/2007 Outpatient Historical [facility] Medicine [address] [phone] Mike Hardy, USED EQUIPMENT SALES REPRESENTATIVE [address] [place] [address] Unspecified Disorder of Skin and Subcutaneous Tissue (Primary Dx) Social History Tobacco Use Types Packs/Day Years Used Date Smoking Tobacco: Never Assessed Comments Unknown Sex and Gender Information Value Date Recorded Sex Assigned at Not on file 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
--- OUTSIDE RECORDS SUMMARY | 2025-07-01 08:28 | XMS_ITS | Encounter Summary ---
Author Organization [facility] Address [address] [place] [address] Care Team Providers Care Dietary Assistant Name Role Phone Lydia Cleaning DO Primary Care Provider Encounter Details Date Type Department Care Team (Latest Contact Info) Description 03/26/2007 Outpatient Historical [facility] Medicine [address] [phone] Mike Hardy, JAVA SOLUTIONS ARCHITECT [address] [place] [address] Acute Frontal Sinusitis (Primary Dx) Social History Tobacco Use Types Packs/Day Years Used Date Smoking Tobacco: Never Assessed Comments Unknown Sex and Gender Information Value Date Recorded Sex Assigned at Not on file Legal Sex Female 3:49 AM REPORT MANAGER Gender Identity Not on file Sexual Orientation Not on file documented as of this encounter Plan of Treatment Not on file documented as of this encounter Visit Diagnoses Diagnosis Acute frontal sinusitis- Primary documented in this encounter Care Teams Dietary Assistant Relationship Specialty Start Date End Date Lydia Cleaning DO [address] [place] [phone] PCP - General Family Practice 04/23/10 documented as of this encounter
--- OUTSIDE RECORDS SUMMARY | 2025-07-01 08:28 | XMS_ITS | Encounter Summary ---
Author Organization [facility] Address [address] [place] [address] Care Team Providers Care Stubber Name Role Phone Lydia Cleaning DO Primary Care Provider Encounter Details Date Type Department Care Team (Latest Contact Info) Description 08/20/[address] 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
--- OUTSIDE RECORDS SUMMARY | 2025-07-01 08:28 | XMS_ITS | Encounter Summary ---
Author Organization [facility] Address [address] [place] [address] Care Team Providers Care Excelsior Picker Name Role Phone Lydia Cleaning DO Primary Care Provider Encounter Details Date Type Department Care Team (Latest Contact Info) Description 12/21/2006 Outpatient Historical [facility] Medicine [address] [phone] Mike Hardy, SECTION LEADER [address] [place] [address] Esophageal Reflux (Primary Dx); Allergic Rhinitis, Cause Unspecified Social History Tobacco Use Types Packs/Day Years Used Date Smoking Tobacco: Never Assessed Comments Unknown Sex and Gender Information Value Date Recorded Sex Assigned at Not on file 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
--- OUTSIDE RECORDS SUMMARY | 2025-07-01 08:28 | XMS_ITS | Encounter Summary ---
Author Organization [facility] Address [address] [place] [facility] [place] [address] Care Team Providers Care Technical Asst Name Role Phone Lydia Cleaning DO Primary Care Provider Encounter Details Date Type Department Care Team (Latest Contact Info) Description 02/05/2006 Outpatient Historical [facility] [address] [place] [phone] Merrick Royal Jr., MD NO ADDRESS ON FILE DM w/o Complication Type II, Uncontrolled (Primary Dx) Social History Tobacco Use Types Packs/Day Years Used Date Smoking Tobacco: Never Assessed Comments Unknown Sex and Gender Information Value Date Recorded Sex Assigned at Not on file Legal Sex Female 3:49 AM SUPERVISOR STATEMENT CLERKS Gender Identity Not on file Sexual Orientation Not on file documented as of this encounter Plan of Treatment Not on file documented as of this encounter Visit Diagnoses Diagnosis Type II or unspecified type diabetes mellitus without mention of complication, uncontrolled- Primary documented in this encounter Care Teams Technical Asst Relationship Specialty Start Date End Date Lydia Cleaning DO [address] [facility] [place] [address] PCP - General Family Practice 04/23/10 documented as of this encounter
--- OUTSIDE RECORDS SUMMARY | 2025-07-01 08:28 | XMS_ITS | Encounter Summary ---
Author Organization [facility] Address [address] [facility] [facility] [place] [address] Care Team Providers Care Furniture Repairer Name Role Phone Lydia Cleaning DO Primary Care Provider Encounter Details Date Type Department Care Team (Latest Contact Info) Description 06/03/2006 Outpatient Historical [facility] Pulmonology-[facility] [place] [address] [place] [phone] Brent Rascon MD NO ADDRESS ON FILE Unspecified Asthma (Primary Dx) Social History Tobacco Use Types Packs/Day Years Used Date Smoking Tobacco: Never Assessed Comments Unknown Sex and Gender Information Value Date Recorded Sex Assigned at Not on file Legal Sex Female 3:49 AM AUTHORIZATION REPRESENTATIVE Gender Identity Not on file Sexual Orientation Not on file documented as of this encounter Plan of Treatment Not on file documented as of this encounter Visit Diagnoses Diagnosis Unspecified asthma(493.90)- Primary Unspecified asthma documented in this encounter Care Teams Furniture Repairer Relationship Specialty Start Date End Date Lydia Cleaning DO [address] [place] [facility] [place] [address] PCP - General Family Practice 04/23/10 documented as of this encounter
--- OUTSIDE RECORDS SUMMARY | 2025-07-01 08:28 | XMS_ITS | Encounter Summary ---
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
--- OUTSIDE RECORDS SUMMARY | 2025-07-01 08:28 | XMS_ITS | Encounter Summary ---
Author Organization [facility] Address [address] [place] [address] Care Team Providers Care Teacher Advisor Name Role Phone Lydia Cleaning DO Primary Care Provider [phone] Encounter Details Date Type Department Care Team (Latest Contact Info) Description 12/20/2004 Outpatient Historical [facility] Medicine- [place] [address] [place] [place] [phone] Waqar Hough MD [address] [place] [phone] ALLERGIC RHINITIS NOS (Primary Dx) Social History Tobacco Use Types Packs/Day Years Used Date Smoking Tobacco: Never Assessed Comments Unknown Sex and Gender Information Value Date Recorded Sex Assigned at Not on file Legal Sex Female 3:49 AM ETHYL BLENDER Gender Identity Not on file Sexual Orientation Not on file documented as of this encounter Plan of Treatment Not on file documented as of this encounter Visit Diagnoses Diagnosis Allergic rhinitis, cause unspecified- Primary documented in this encounter Care Teams Teacher Advisor Relationship Specialty Start Date End Date Lydia Cleaning DO [address] [facility] [place] [facility] [place] [address] PCP - General Family Practice 04/23/10 documented as of this encounter
--- OUTSIDE RECORDS SUMMARY | 2025-07-01 08:28 | XMS_ITS | Encounter Summary ---
Author Organization [facility] Address [address] [place] [address] Care Team Providers Care Inspector Glass Or Mirror Name Role Phone Lydia Cleaning DO Primary Care Provider Encounter Details Date Type Department Care Team (Latest Contact Info) Description 05/14/2007 Outpatient Historical [facility] Medicine [address] [phone] Mike Hardy, KENNEL KEEPER [address] [place] [address] Unspecified Backache (Primary Dx) Social History Tobacco Use Types Packs/Day Years Used Date Smoking Tobacco: Never Assessed Comments Unknown Sex and Gender Information Value Date Recorded Sex Assigned at Not on file Legal Sex Female 3:49 AM MOTIVATIONAL SPEAKER Gender Identity Not on file Sexual Orientation Not on file documented as of this encounter Plan of Treatment Not on file documented as of this encounter Visit Diagnoses Diagnosis Backache, unspecified- Primary documented in this encounter Care Teams Inspector Glass Or Mirror Relationship Specialty Start Date End Date Lydia Cleaning DO [address] [place] [address] PCP - General Family Practice 04/23/10 documented as of this encounter
--- OUTSIDE RECORDS SUMMARY | 2025-07-01 08:28 | XMS_ITS | Encounter Summary ---
Author Organization [facility] Address [address] [place] [address] Care Team Providers Care Parcel Post Clerk Name Role Phone Lydia Cleaning DO Primary Care Provider Encounter Details Date Type Department Care Team (Late st Contact Info) Description 04/04/2009 Ancillary Orders [facility] [address] [place] [address] Aashish Gupta, FLANGING OPERATOR [address] [place] [phone] SI (Sacroiliac) Pain Social History Tobacco Use Types Packs/Day Years Used Date Smoking Tobacco: Never Alcohol Use Standard Drinks/Week Comments No 0 (1 standard drink = 0.6 oz pur e alcohol) Comments No Sex and Gender Information Value Date Recorded Sex Assigned at Not on file 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 Mild chronic L4 compression fracture. A prominent Schmorl's node indents the superior L2 endplate. Significant multilevel degenerative changes, a dextroscoliosis and varying degrees of lateral recess and foraminal narrowing, most significant at the L2-L3 and L3-L4 levels. cgf: 1342 - uploaded from [employer] - Narrative 04/05/2009 8:32 AM CDT Lumbar spine MRI: Findings: Mild chronic L4 compression fracture. A prominent Schmorl's node indents the superior L2 vertebral body. Significant multilevel degenerative changes and a mild to moderate dextroscoliosis. The conus is normal. L1-L2: Mild disc space height loss and fatty endplate degenerative changes. A moderate disc bulge contributes to mild narrowing of the right lateral recess and neural foramen. L2-L3: Very mild disc space height loss, a slight retrolisthesis and a moderate disc bulge and facet degenerative changes. Significant narrowing of the left lateral recess, possibly affecting the left L3 nerve root. Moderate bilateral foraminal narrowing. L3-L4: Significant disc space loss and moderate fatty endplate degenerative changes. Moderate broad-based disc bulge, facet degenerative changes and ligamentum flavum hypertrophy resulting in satrwjrr-wc-kbfzbr central canal and moderate right and mild left foraminal stenosis. L4-L5: Mild disc space height and diffuse signal loss and significant fatty endplate degenerative changes and a mild disc bulge and bilateral foraminal narrowing. L5-S1: No significant disc herniation, central canal or foraminal narrowing. Moderate facet degenerative changes. Procedure Note Omari Skaggs MD - 04/05/2009 Lumbar spine MRI: Findings: Mild chronic L4 compression fracture. A prominent Schmorl's nodeindents the superior L2 vertebral body. Significant multilevel degenerative changes and a mild tomoderate dextroscoliosis. The conus is normal. L1-L2: Mild disc space height loss and fatty endplate degenerativechanges. A moderate disc bulge contributes to mild narrowing of the right lateral recess and neuralforamen. L2-L3: Very mild disc space height loss, a slight retrolisthesis and amoderate disc bulge and facet degenerative changes. Significant narrowing of the left lateral recess,possibly affecting the left L3 nerve root. Moderate bilateral foraminal narrowing. L3-L4: Significant disc space loss and moderate fatty endplatedegenerative changes. Moderate broad-based disc bulge, facet degenerative changes and ligamentum flavum hypertrophyresulting in lebuhuga-sc-ndazgz central canal and moderate right and mild left foraminal stenosis. L4-L5: Mild disc space height and diffuse signal loss and significantfatty endplate degenerative changes and a mild disc bulge and bilateral foraminal narrowing. L5-S1: No significant disc herniation, central canal or foraminalnarrowing. Moderate facet degenerative changes. IMPRESSION Impression: 1. Mild chronic L4 compression fracture. A prominent Schmorl's nodeindents the superior L2 endplate. Significant multilevel degenerative changes, a dextroscoliosis and varyingdegrees of lateral recess and foraminal narrowing, most significant at the L2-L3 and L3-L4 levels. cgf: 1342 - uploaded from [employer] - us Aashish Gupta FLANGING OPERATOR MR ORDERABLES Final Result documented in this encounter Visit Diagnoses Diagnosis SI (sacroiliac) pain Disorders of sacrum documented in this encounter Care Teams Parcel Post Clerk Relationship Specialty Start Date End Date Lydia Celaning DO [address] [place] [phone] PCP - General Family Practice 04/23/10 documented as of this encounter
--- OUTSIDE RECORDS SUMMARY | 2025-07-01 08:28 | XMS_ITS | Encounter Summary ---
Author Organization [facility] Address [address] [place] [address] Care Team Providers Care District Plant Superintendent Name Role Phone Black Lydia Mook EATON Primary Care Provider Encounter Details Date Type Department Care Team (Late st Contact Info) Description 10/01/2007 Outpatient [facility] Allergy and Asthma- [place] [address] [place] [address] Wally Isidro MD NO ADDRESS ON FILE Social History Tobacco Use Types Packs/Day Years Used Date Smoking Tobacco: Never Assessed Comments Unknown Sex and Gender Information Value Date Recorded Sex Assigned at Not on file 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 PRESENT COMPLAINT: Yelitza presents for an allergy evaluation. She is being seen in consultation from. Eleni Nails. She presents with a history of chronic congestion and collarette separator release symptoms ofthe eyes, ears, nose, and throat. She reports a seasonal exacerbation of her symptoms in the springand fall. She has some vasomotor congestion, but is not described as having any significant snoringor sleep disturbance by her . She has had occasional sinus infections, but has had no radiographic investigation of that disease nor has she had any previous ENT evaluation or surgical intervention, even as a child. She is now describing an exacerbation of COPD. She has been followed by Dr. Leonel block in the past and continues Advair 250/50 and Spiriva daily. She has had significant benefit from this combination. She has albuterol solution and albuterol inhaler if needed. She has a history of asthma and was diagnosed as having COPD about 4 years ago. Prior to that she had been treated withAeroBid and nebulized medications as needed. She does report 4 steroid injections in the past monthfor exacerbations of shortness of breath and persistent bronchitis. She is scheduled to be seen by Dr. Wise next week. MEDICATIONS: She is currently using Advair, Spiriva, and albuterol as listed above. PAST ALLERGIC INVESTIGATION: She has had allergy testing from Dr. Bryan nearly 40 years ago. She took allergy shots for less than a year. COLLATERAL ALLERGIES: There are multiple adverse drug reactions; 11 of the 14 drugs precipitated anexacerbation of hives. She does not report any spontaneous or idiopathic urticaria, except with these medication associations. She lists hives from CEFPROZIL, PENICILLIN, LIPITOR, NIASPAN, SULFAMETHOXAZOLE, PROCARDIA, NITROFURANTOIN, FLOXIN, SINGULAIR, and TRAMADOL. She had other adverse reactions to PRINIVIL, THEOPHYLLINE, and HYDROCHLOROTHIAZIDE. She is unaware of any stinging insect allergy and reports no food allergy. ENVIRONMENTAL EXPOSURES: She is not a smoker. She is not exposed to any secondhand smoke. She has an outdoor dog. She is unaware of any environmental contribution to the disease or exacerbation associated with animal exposures. PAST MEDICAL HISTORY: She is on metformin, omeprazole, Mobic, quinapril, pravastatin, and alprazolam. She also takes Ecotrin and uunz-qrb-uefflfq vitamins and supplements. She is taking Octoplus 2 a day. FAMILY HISTORY: There is a family history of diabetes, skin disease, and asthma. PHYSICAL EXAMINATION: Her weight is 186 pounds. Her blood pressure is 132/76. Her pulse is 80. Her HEENT exam shows clear TMs and conjunctivae. Her nasal exam shows a moderate degree of congestion with mucus stranding. There are no nasal polyps. There is no evidence of secondary infection. Her oropharynx is clear. Her neck is supple, without significant adenopathy. Her chest exam evidences a slight decrease in breath sounds. There is no expiratory wheeze or shortness of breath. EVALUATION: She underwent screening spirometry. Her FEV-1 today is 1.04 with a last FEV-1 in the pulmonary records of 0.7 indicating a 25% improvement with the combination of Advair and Spiriva from that visit. It is also noteworthy that she evidences this improvement with her recent exacerbations requiring IM steroid administration. She underwent duo-tip skin testing followed by intradermal skintesting. She evidenced intradermal reactions that were very large to dust mites, cat, dog, and select mold. Because of the size of the reaction, she was administered 50 mg of chewable Benadryl and observed for 30 minutes before departure. I discussed with her, her significant perennial allergy and the risks and benefits of allergy immunotherapy. She is not a candidate for immunotherapy, because of the severity of her lung disease. 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 She is therefore a candidate for Xolair. I suggested a total IgE for determination of Xolair dosing and provided them educational materials regarding this alternative treatment modality. IMPRESSION: Ms. Pisano evidences a history of chronic perennial rhinitis and moderately severechronic obstructive pulmonary disease. She does demonstrate recent reversibility with a combinationof Advair and Spiriva, despite recent exacerbations requiring steroid dosing. RECOMMENDATIONS: I suggested consideration of Xolair. Environmental controls were advocated and brochures provided to minimize dust mite exposures in the home. She is to continue to keep her home petfree. I suggested more aggressive treatment of the upper airway with Flonase twice a day. She is topresent in followup as she comes back to [place] for her pulmonary evaluation. A copy of the consultation is to be forwarded at this time to the attention of Dr. Nails. A copy of this consult was sent to lEeni Nails M.D. Wally Isidro M.D. Allergy & Immunology Electronically Signed by Wally Isidro M.D. 10/07/2007 11:29 , A, 600 Document #: [id number] cc: Eleni Nails M.D. NE MARKETING DIRECTOR documented in this encounter Plan of Treatment Not on file documented as of this encounter Procedures Procedure Name Priority Date/Time Associated Diagnosis Comments NM CONSULTATION Routine 11/01/2007 9:25 AM CDT documented in this encounter Results * NM CONSULTATION (11/01/2007 9:25 AM CDT) 11/01/2007 9:25 AM CDT Narrative INTERFACE SYSTEM - 11/01/2007 9:25 AM CDT 01-06-07 Reason for Consultation: Post menopause without hormonal replacement therapy. Evaluate bone mineral density. DEXA EVALUATION OF THE LUMBAR SPINE AND LEFT PROXIMAL FEMUR: BMD Young Adult Region g/cm2 % T L1-L2 1.329 114 1.4 Femoral neck 0.818 84 -1.3 Total hip 0.946 95 -0.5 The technical quality of the lumbar spine study is poor. There is some slight curvature and structural distortion in the lower segments as well as patchy focal hypertrophic disease that is spuriously elevating the absolute density of the spine. L3 and L4 are most severely affected by this process. L1-L2 is least affected and will be primarily used in this analysis. The left proximal femur study is good. Serial measurement #1. Evaluation of the lumbar spine reveals normal bone mineral density and no evidence of significant segmental demineralization. The left proximal femur only shows evidence of mild demineralization in the femoral neck which has 16% less mineral than the mean projected for a young normal, ages 20-40, with a T-score of -1.3 and a Z-score of -0.2. IMPRESSION: The bone mineral density of the lumbar spine is slightly elevated because of concurrent hypertrophic disease. There is no evidence of osteopenia or osteoporosis in the spine. The left proximal femur only shows evidence of mild involutional osteopenia in the femoral neck. There is no evidence of advanced osteopenia or osteoporosis. She does not have a significant increase in risk for fragility fracture. Recommend conservative management and a follow-up examination in a few years. [facility] [id number] Dictated By: Collin Chang M.D. Electronically Signed By: Roger Banda Signed: 01/07/07 [facility] Procedure Note 06/23/2009 01-06-07 Reason for Consultation: Post menopause without hormonal replacement therapy. Evaluate bone mineraldensity. DEXA EVALUATION OF THE LUMBAR SPINE AND LEFT PROXIMAL FEMUR: BMD Young Adult Region g/cm2 % T L1-L2 1.329 114 1.4 Femoral neck 0.818 84 -1.3 Total hip 0.946 95 -0.5 The technical quality of the lumbar spine study is poor. There is someslight curvature and structural distortion in the lower segments as well as patchy focal hypertrophicdisease that is spuriously elevating the absolute density of the spine. L3 and L4 are most severelyaffected by this process. L1-L2 is least affected and will be primarily used in this analysis. The leftproximal femur study is good. Serial measurement #1. Evaluation of the lumbar spine reveals normal bone mineral density and noevidence of significant segmental demineralization. The left proximal femur only shows evidence ofmild demineralization in the femoral neck which has 16% less mineral than the mean projected for guilherme normal, ages 20-40, with a T-score of -1.3 and a Z-score of -0.2. IMPRESSION: The bone mineral density of the lumbar spine is slightly elevated becauseof concurrent hypertrophic disease. There is no evidence of osteopenia or osteoporosis in the spine.The left proximal femur only shows evidence of mild involutional osteopenia in the femoral neck. Thereis no evidence of advanced osteopenia or osteoporosis. She does not have a significant increase in risk for fragility fracture.Recommend conservative management and a follow-up examination in a few years. [facility] [id number] Dictated By: Collin Chang M.D. Electronically Signed By: Collin Chang M.D. Date Signed: 01/07/07 [facility] us Eleni Nails MD NM ORDERABLES Final Result INTERFACE SYSTEM Refer to clinic/hospital department documented in this encounter Visit Diagnoses Not on filedocumented in this encounter Care Teams District Plant Superintendent Relationship Specialty Start Date End Date Lydia Cleaning DO [address] [place] [address] PCP - General Family Practice 04/23/10 documented as of this encounter
--- OUTSIDE RECORDS SUMMARY | 2025-07-01 08:28 | XMS_ITS | Encounter Summary ---
Author Organization [facility] Address [address] [place] [address] Care Team Providers Care Languages And Literature Instructor Name Role Phone Lydia Cleaning DO Primary Care Provider Encounter Details Date Type Department Care Team (Latest Contact Info) Description 11/21/2004 Outpatient Historical [facility] Medicine- [place] [address] [facility] [address] Waqar Hough MD [address] [place] [phone] DIZZINESS AND GIDDINESS (Primary Dx) Social History Tobacco Use Types Packs/Day Years Used Date Smoking Tobacco: Never Assessed Comments Unknown Sex and Gender Information Value Date Recorded Sex Assigned at Not on file 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
--- OUTSIDE RECORDS SUMMARY | 2025-07-01 08:28 | XMS_ITS | Encounter Summary ---
Author Organization [facility] Address [address] [facility] [place] [address] Care Team Providers Care Certified Coatings Inspector Name Role Phone Lydia Cleaning DO Primary Care Provider [phone] Encounter Details Date Type Department Care Team (Latest Contact Info) Description 03/08/2006 Outpatient Historical [facility] [address] [place] [phone] Merrick Royal Jr., MD NO ADDRESS ON FILE DM w/o Complication Type II, Uncontrolled (Primary Dx) Social History Tobacco Use Types Packs/Day Years Used Date Smoking Tobacco: Never Assessed Comments Unknown Sex and Gender Information Value Date Recorded Sex Assigned at Not on file 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
--- OUTSIDE RECORDS SUMMARY | 2025-07-01 08:28 | XMS_ITS | Encounter Summary ---
Author Organization [facility] Address [address] [place] [address] Care Team Providers Care Dental Insurance Biller Name Role Phone Lydia Cleaning Primary Care Provider Encounter Details Date Type Department Care Team (Latest Contact Info) Description 05/26/2007 Outpatient Historical [facility] [address] 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 Gender Identity Not on file Sexual Orientation Not on file documented as of this encounter Plan of Treatment Not on file documented as of this encounter Procedures Procedure Name Priority Date/Time Associated Diagnosis Comments POTASSIUM LEVEL Routine 05/26/2007 4:40 PM CDT CK Routine 05/26/2007 4:40 PM CDT documented in this encounter Results * POTASSIUM LEVEL (05/26/2007 4:40 PM CDT) POTASSIUM 4.2 3.5 - 5.0 mEq/L INTERFACE SYSTEM 05/26/2007 4:40 PM CDT us Merrick Royal Jr., MD CHEMISTRY ORDERABLES Edited INTERFACE SYSTEM Refer to clinic/hospital department * CK (05/26/2007 4:40 PM CDT) CK 67 26 - 140 U/L INTERFACE SYSTEM Comment: As of [address] [facility] has changed testing methods. The new reference ranges are Males 38-174 Females 26-140 The old referance ranges were Males 0-155 Females 0-133 05/26/2007 4:40 PM CDT us Merrick Royal Jr., MD CHEMISTRY ORDERABLES Edited Performing Organization Address City/State/[facility] [[email or web address]] Co de Phone Number INTERFACE SYSTEM Refer to clinic/hospital department documented in this encounter Visit Diagnoses Diagnosis Cramp of limb- Primary documented in this encounter Care Teams Dental Insurance Biller Relationship Specialty Start Date End Date Lydia Cleaning DO [address] [place] [phone] PCP - General Family Practice 04/23/10 documented as of this encounter
--- OUTSIDE RECORDS SUMMARY | 2025-07-01 08:28 | XMS_ITS | Encounter Summary ---
Author Organization [facility] Address [address] [place] [address] Care Team Providers Care Whiskey Regauger Name Role Phone Lydia Cleaning DO Primary Care Provider Encounter Details Date Type Department Care Team (Latest Contact Info) Description 05/14/2005 Outpatient Historical 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
--- OUTSIDE RECORDS SUMMARY | 2025-07-01 08:28 | XMS_ITS | Encounter Summary ---
Author Organization [facility] Address [address] [place] [address] Care Team Providers Care Rehab Liaison Name Role Phone Lydia Cleaning DO Primary Care Provider Encounter Details Date Type Department Care Team (Latest Contact Info) Description 11/13/2006 Outpatient Historical [facility] Medicine [address] [phone] Mike Hardy, SALES OFFICER [address] [place] [address] Unspecified Asthma (Primary Dx); Acute Pharyngitis; Acute Bronchitis Social History Tobacco Use Types Packs/Day Years Used Date Smoking Tobacco: Never Assessed Comments Unknown Sex and Gender Information Value Date Recorded Sex Assigned at Not on file 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
--- OUTSIDE RECORDS SUMMARY | 2025-07-01 08:28 | XMS_ITS | Encounter Summary ---
Author Organization [facility] Address [address] [place] [address] Care Team Providers Care Change Control Coordinator Name Role Phone Lydia Cleaning DO Primary Care Provider [phone] Encounter Details Date Type Department Care Team (Latest Contact Info) Description 12/19/2005 Outpatient Historical [facility] Pulmonology-[facility] [place] [address] [place] [phone] Brent Rascon MD NO ADDRESS ON FILE Chronic Airway Obstruction, not Elsewhere Classified (CMS/HCC) (Primary Dx) Social History Tobacco Use Types Packs/Day Years Used Date Smoking Tobacco: Never Assessed Comments Unknown Sex and Gender Information Value Date Recorded Sex Assigned at Not on file 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
[2025-07-01 08:34] LABS: Hematocrit 43.9 % (36-47); Hemoglobin 14.30 g/dL (11.27-16.99); Mean Corpuscular HGB Conc 32.6 g/dL (30-55); Mean Corpuscular Hemoglobin 31.0 pg (27-33); Mean Corpuscular Volume 95.2 fl (85-98); Nucleated Red Blood Cells % 0 %; Platelet Count 184 10^3/cmm (157-399); Red Blood Count 4.61 10^6/uL (3.85-5.65); White Blood Count 5.98 10^3/uL (3.29-11.43)
[2025-07-01 08:35] LABS: Glucose Urine UA Negative (Normal); Nitrate Urine Negative (Negative); Specific Gravity, Urine 1.009 (1.005-1.030)
--- NOTE | 2025-07-01 08:38 | ECG_ITS ---
[facility] [place] Test Date: 2025-07-01 Pat Name: Yelitza Pisano Department: Room: Gender: Female Housekeeper Manager: : [id number] Requested By: Shiva Toney Order Number: [id number] Kathrine MD: Rafael Sims M.D. Measurements Intervals [place] Rate: 79 P: 73 CO: 195 QRS: -29 QRSD: 74 T: 40 QT: 346 QTc: 398 Interpretive Statements SINUS RHYTHM LOW QRS VOLTAGE IN PRECORDIAL LEADS [QRS DEFLECTION < 1.0 mV IN CHEST LEADS] Compared to ECG 11/21/2024 14:41:15 Low QRS voltage now present Sinus tachycardia no longer present Electronically Signed On 07-01-2025 14:26:38 DEVELOPER DESIGNER by Rafael Sims M.D. [email or web address]
[2025-07-01 08:40] LABS: Add Urine Microscopic? YES
[2025-07-01 08:47] LABS: UA Slide Review UA Slide Review Perf
[2025-07-01 08:48] VITALS: BP 137/88; PULSE 75; RESP 19; O2SAT 93
[2025-07-01 08:58] LABS: Alanine Aminotransferase 16 U/L (0-33); Albumin Level 3.9 g/dL (3.5-5.2); Alkaline Phosphatase 65 U/L (35-105); Anion Gap 15.7 (5-19); Aspartate Amino Transferase 24 U/L (0-32); Blood Urea Nitrogen 9 mg/dL (8-23); Calcium 10.0 mg/dL (8.5-10.5); Carbon Dioxide 23 mmol/L (22-29); Chloride 104 mmol/L (98-107); Globulin 3.0 g/dL (1.3-4.6); Glucose 120 mg/dL (65-115); Osmolality Calculated 288 mOsm/kg (285-295); Potassium 3.7 mmol/L (3.5-5.1); Sodium 139 mmol/L (136-145); Total Protein 6.9 g/dL (6.6-8.7)
[2025-07-01 09:11] LABS: Respiratory Syncytial Virus Ce NEGATIVE (Negative); SARS-CoV-2 PCR NEGATIVE (Negative)
[2025-07-01 09:36] VITALS: BP 137/88; PULSE 77; RESP 18; O2SAT 93
== END 2025-07-01 10:15 | disposition home or self-care (01) ==
PROVIDERS: Emergency Provider Emergency Medicine; PCP Family Medicine
DX: J06.9 Acute upper respiratory infection, unspecified (principal); Z11.52 Encounter for screening for COVID-19; J44.9 Chronic obstructive pulmonary disease, unspecified
CPT/HCPCS: 36415; 71045; 80053; 81001; 85025; 87637; 93005; 99285